=== PATIENT | female | born 1950 | race Caucasian/White ===

== ENCOUNTER 2016-11-15 06:01 | Inpatient (IN) | payer OTHER, MEDICARE ==
[2016-10-18 10:55] VITALS: BMI 24.0
--- NOTE | 2016-10-18 11:39 | PAT Medication Instructions ---
Service Date Oct 18, 2016. Current Home Medication List Aspirin (Aspirin Ec), 81 MG PO NOON Brimonidine Tartrate 0.15% Oph (Alphagan P 0.15% Oph *), 1 DROP OP BID Calcium Acetate (Phoslo 667 Mg), 4 TAB PO TID Cholecalciferol (Vitamin D3), 1 TAB PO QAM Hydralazine Hcl (Apresoline), 50 MG PO QPM Labetalol Hcl (Labetalol Hcl), 800 MG PO BID Levothyroxine Sodium (Levothyroxine Sodium), 1 TAB PO QAM Nutritional Supplements (Boost), 1 CAN PO DAILY Ondansetron Hcl (Zofran), 8 MG PO PRN PRN for Nausea Senna (Senokot), 1 TAB PO BID PRN for PRN Sulfamethoxazole-Trimethoprim (Smz-Tmp Ds), 1 TAB PO NOON Valsartan (Diovan), 320 MG PO HS Vitamin B Cmplx/Vitc/Folic Ac (Nephrocaps), 1 CAP PO QAM Medication Instructions For Your Scheduled Surgery - Hold the following medications evening prior to surgery: Valsartan (Diovan), 320 MG PO HS - Hold the following medications the morning of surgery: Vitamin B Cmplx/Vitc/Folic Ac (Nephrocaps), 1 CAP PO QAM Senna (Senokot), 1 TAB PO BID PRN for PRN Nutritional Supplements (Boost), 1 CAN PO DAILY Cholecalciferol (Vitamin D3), 1 TAB PO QAM Calcium Acetate (Phoslo 667 Mg), 4 TAB PO TID - Take the following medications the morning of surgery with a sip of water: Levothyroxine Sodium (Levothyroxine Sodium), 1 TAB PO QAM Labetalol Hcl (Labetalol Hcl), 800 MG PO BID Brimonidine Tartrate 0.15% Oph (Alphagan P 0.15% Oph *), 1 DROP OP BID Ondansetron Hcl (Zofran), 8 MG PO PRN PRN for Nausea (only if needed) - Take the following medications as scheduled the afternoon/night before surgery : Sulfamethoxazole-Trimethoprim (Smz-Tmp Ds), 1 TAB PO NOON Senna (Senokot), 1 TAB PO BID PRN for PRN Hydralazine Hcl (Apresoline), 50 MG PO QPM Labetalol Hcl (Labetalol Hcl), 800 MG PO BID Calcium Acetate (Phoslo 667 Mg), 4 TAB PO TID Aspirin (Aspirin Ec), 81 MG PO NOON Brimonidine Tartrate 0.15% Oph (Alphagan P 0.15% Oph *), 1 DROP OP BID If you have any questions please call us at [phone] or [phone] ( [place]) or [phone]
[2016-10-18 12:01] LABS: BASO % 1.1 %; BASO ABS # 0.06 K/uL (0-0.2); COMPLETE YES; HEMATOCRIT 33.6 % (37-47); IG% 0.2 %; LYMPH ABS # 1.07 K/uL (1.2-3.4); MEAN CELL VOLUME 96.3 fL (80-100); MEAN CORPUSCULAR HEMOGLOBIN 31.5 pg (25-34); MEAN CORPUSCULAR HGB CONC 32.7 g/dl (32-36); MEAN PLATELET VOLUME 8.8 fL (7.4-10.4); MONO % 10.5 %; NEUT % 61.2 %; PLATELET COUNT 245 K/uL (130-400); RED BLOOD COUNT 3.49 M/uL (4.2-5.4); WHITE BLOOD COUNT 5.64 K/uL (4.8-10.8)
[2016-10-18 12:14] LABS: INR 1.1 (0.9-1.1); PARTIAL THROMBOPLASTIN RATIO 1.2; PROTHROMBIN TIME (PATIENT) 11.9 SECONDS (9.0-12.0)
[2016-10-18 13:05] LABS: ESTIMATED AVERAGE GLUCOSE 85 mg/dl; HA1C FLAG Normal (Normal)
[2016-10-18 13:59] LABS: BUN/CREATININE RATIO 6.3 (10-20); CALCIUM 9.2 mg/dl (8.5-10.1); CREATININE 5.1 mg/dl (0.60-1.20); POTASSIUM 5.1 mmol/L (3.5-5.1)
--- NOTE | 2016-10-25 18:51 | History and Physical ---
History & Physical Date of Service Oct 25, 2016. History & Physical DATE OF ADMISSION: 11/15/16 PROCEDURE: Left knee replacement. HISTORY OF PRESENT ILLNESS: Rosanna is a 65-year-old female who presents for preop evaluation prior to left knee replacement. She has been having pain in his knee for many years now, which has gradually worsened, has now gotten to the point it is affecting her daily activities including walking, standing, going up and down steps. She has tried previous injections in her knee including cortisone as well as viscosupplementation. She has also had a previous knee arthroscopy. At this point in time, x-rays show end-stage DJD with valgus alignment, has failed conservative measures and would like to proceed with a left knee replacement. PAST MEDICAL HISTORY: 1. Hypertension. 2. Hypothyroidism. 3. End stage renal disease on hemodialysis, currently has dialysis on Monday, Monday and Monday ALLERGIES: 1. PENICILLIN. 2. STATINS. 3. PERCOCET. 4. ZESTRIL. 5. NORVASC. 6. CEPHALOSPORINS. CURRENT MEDICATIONS: 1. Labetalol 800 mg twice a day. 2. Terazosin 5 mg daily. 3. Levothyroxine 0.5 mg daily. 4. Valsartan 320 mg daily. 5. Senokot. 6. Tylenol as needed. PAST SURGICAL HISTORY: 1. Toe surgery in 1962. 2. Rectal abscess. 3. . 4. Tonsils 1972. 5. Appendectomy in 1972. 6. D\T\C. 7. Hysterectomy in 1977. 8. Right kidney removed in 1982. 9. Cholecystectomy 2005. 10. Left knee arthroscopy in 2005. 11. Right arm fistula removed 2007. 12. Right knee arthroscopy 2010. 13. Right TKA May 2016 FAMILY HISTORY: Noncontributory. SOCIAL HISTORY: Denies a history of smoking or tobacco use. No alcohol consumption. REVIEW OF SYSTEMS: Otherwise negative. Please see HPI for pertinent positives. PHYSICAL EXAMINATION: GENERAL: Pleasant 65-year-old female in no acute distress, alert and oriented x3. She is 5 feet 2 inches, weighs 136 pounds. VITAL SIGNS: Blood pressure is 136/82. CARDIAC: Regular rate and rhythm. No murmurs or gallops appreciated. LUNGS: Clear to auscultation without rales or wheeze bilaterally. ABDOMEN: Soft, nontender. Bowel sounds present. EXTREMITIES: Attention to her left lower extremity, she is neurovascularly intact. Calves are soft and nontender. DP pulse +2. Demonstrates good quad tone. Straight leg raise without lag. Overall has valgus alignment. She has positive crepitation with motion. Range of motion 0/5/110. Knee is ligamentously stable. IMAGING: Reviewed of her left knee shows complete loss of joint space of the lateral compartment as well as patellofemoral joint. She has subchondral cyst formation and peripheral osteophytes noted. IMPRESSION: 1. Left knee degenerative joint disease. 2. Hypertension. 3. Hypothyroidism. 4. end stage renal disease currently on dialysis PLAN: Further care discussed with patient. At this point in time, has failed conservative measures and would like to proceed with a left knee replacement. Will place on aspirin 81 mg p.o. b.i.d. for a month postop. Will require transfer post op to allow her to continue on her dialysis schedule , will discuss with SS to make similar arrangements to her previous hospital stay.
[~2016-11-15] VITALS: Ht 157.5 cm; Wt 66.0 kg
[2016-11-15] VITALS (10 sets, daily range): BP systolic 145–176; BP diastolic 67–83; PULSE 55–69; TEMP 36.4–36.8; O2SAT 91–100; Ht 157.5 cm; Wt 66.0 kg
[~2016-11-15 06:01] MED LIST: ACETAMINOPHEN 500 MG TAB PO SCH; ALPOPS1510 OP; ASPI81TA28 PO; B-COCAP2 PO; CALC667C4 PO; CHOL1000 PO; CeleBREX 200 MG CAP PO SCH; DEXAMETHASONE 4 MG TAB PO SCH; FAMOTIDINE 20 MG TAB PO SCH; GABAPENTIN 300 MG CAP PO SCH; HYDR-4717 PO; LABE200T24 PO; LACTATED RINGER'S 1000ML IV SCH; LEVO50TA6 PO; METOCLOPRAMIDE HCL 10 MG TAB PO SCH; NSS 1000ML IV SCH; NUTR-7 PO; ONDA8TAB6 PO; ROPIVACAINE 5MG/ML 30 ML 150 MG, BUPIVACAINE/EPINEPHR 0.5% MPF 30 ML, KETOROLAC TROMETH... INFIL SCH; SENN-61 PO; SODIUM CHLORIDE 0.9% IV SCH; SULF-183 PO; VALS320T PO; VANCOMYCIN INJ 900 MG in SODIUM CHLORIDE 0.9% 250ML 250 ML IV SCH; VANCOMYCIN IV SCH
[2016-11-15] MEDS ORDERED: LIDOCAINE HCL 2% 2 ML VIAL (20MG/ML) ONE (06:29)
[2016-11-15] MEDS ORDERED: BUPIVACAINE 0.5 % 5 MG/1 ML PF 10ML VIAL ONE (06:29)
[2016-11-15] MEDS ORDERED: PROPOFOL IV EMULSION 10 MG/ML 20 ML VIAL IV ONE (06:29)
[2016-11-15] MEDS ORDERED: FENTANYL CITRATE INJ 50 MCG/1 ML 2 ML VIAL ONE (06:30)
[2016-11-15] MEDS ORDERED: MIDAZOLAM HCL 1 MG/ML 2ML VIAL ONE (06:30)
[2016-11-15] MEDS: TRANEXAMIC ACID INJ 1,000 MG in SODIUM CHLORIDE 0.9% 100ML 100 ML IV SCH ×2 (06:30→08:06)
[2016-11-15] MEDS ORDERED: ONDANSETRON INJ 2 MG/ML 2 ML VIAL IV PRN ×2 (06:45→10:30)
[2016-11-15] MEDS ORDERED: ATROPINE SULFATE 0.1 MG/ML 5ML SYR IV PRN (06:45)
[2016-11-15] MEDS ORDERED: FENTANYL CITRATE INJ 50 MCG/1 ML 2 ML VIAL IV PRN (06:45)
[2016-11-15] MEDS ORDERED: EpHEDrine SULFATE INJ 50 MG/ML AMP IV PRN (06:45)
[2016-11-15] MEDS ORDERED: BACITRACIN 50000 UNIT VIAL ONE (06:57)
[2016-11-15] MEDS ORDERED: ORTHO JOINT ANESTHETIC ONE (06:57)
[2016-11-15] MEDS ORDERED: POVIDONE-IODINE OP SOLN 30 ML BTL ONE (06:57)
--- NOTE | 2016-11-15 07:00 | History & Physical Bridge Note ---
H&P Re-Evaluation Bridge Note: I have examined the patient, reviewed the History & Physical and in the interval since the performance of the History & Physical I have noted the following changes of clinical significance: No changes noted
[2016-11-15 07:33] LABS: BLOOD UREA NITROGEN 26 mg/dl (7-18); BUN/CREATININE RATIO 6.1 (10-20); CALCIUM 9.1 mg/dl (8.5-10.1); CARBON DIOXIDE 25 mmol/L (21-32); CHLORIDE 102 mmol/L (98-107); GLUCOSE 82 mg/dl (70-99); SODIUM 136 mmol/L (136-145)
--- NOTE | 2016-11-15 09:31 | [facility] Post Operative Brief Note ---
Immediate Operative Summary Operative Date November 15, 2016. Pre-Operative Diagnosis End-stage degenerative joint disease left knee Post-Operative Diagnosis Same as preoperative diagnosis Procedure(s) Performed Left Total Knee Arthroplasty Surgeon Dr. Tom Riggs Sports Photographer Surgeon(s) Terry Locke PA-C Estimated Blood Loss 5 mL Findings severe djd lt knee Specimens Permanent specimens A: Left knee bone and tissue Complication(s) None Disposition Recovery Room / PACU
[2016-11-15] MEDS ORDERED: MoRPHine SULFATE 2 MG/ML CARP IV PRN (10:30)
[2016-11-15] MEDS ORDERED: ALUMINUM/MAGNESIUM/SIMETH (MAALOX MAX) 30 ML UDC PO PRN (10:30)
[2016-11-15] MEDS ORDERED: TRAMADOL HCL 50 MG TAB PO PRN (10:30)
[2016-11-15] MEDS ORDERED: BISACODYL 10 MG SUPP PR PRN (10:30)
--- NOTE | 2016-11-15 10:35 | OPERATIVE REPORT ---
DATE OF OPERATION: 11/15/2016 PREOPERATIVE DIAGNOSIS: Severe end-stage tricompartmental degenerative joint disease with valgus alignment left knee. POSTOPERATIVE DIAGNOSIS: Same. PROCEDURE: Left total knee arthroplasty utilizing Moreno \T\ Nephew Journey II nonblock total knee arthroplasty, size 4 femur, 4 tibia, 11 poly constrained, 32 oval patella. SURGEON: Dr. Riggs. MONOGRAM AND LETTER PASTER: CRYSTAL Daly, who was necessary for prepping, draping, retraction, wound closure of deep fascia, subcu and skin, and was necessary for the case. ESTIMATED BLOOD LOSS: 5 mL TOURNIQUET TIME: 45 minutes. COMPLICATIONS: None. HISTORY: The patient presents as a 65-year-old white female who has previously undergone total knee arthroplasty of her right knee successfully, presents today for left total knee arthroplasty after failing attempts at conservative management including physical therapy, anti-inflammatories, injections, relative rest, activity modification, and presents for left total knee arthroplasty. She has a preoperative severe valgus alignment with degenerative joint disease, significant renal disease. OPERATION AND FINDINGS: PROCEDURE: The patient was properly prepped and draped in supine position for total knee arthroplasty after identifying the appropriate surgical site. An anterior midline incision was made through the subcutaneous tissues down to the region of the extensor mechanism. A medial parapatellar incision was subsequently made. Meticulous hemostasis was obtained and performed at all times. The patella having been subluxed lateralward, medial and lateral meniscal remnants were excised. The patellar cut was then initially made and was sized to the appropriate size. After subluxing the tibia forward the appropriate meniscal fragments having been removed the distal femur was then cut first utilizing a Moreno and Nephew nonblock. The distal femoral cuts and chamfer cuts were all made under direct visualization and the proximal tibial osteotomy cut was also made utilizing Moreno and Nephew nonblocks and checked with an extramedullary guide. The appropriate trial components on the femur and tibia were placed. Appropriate trial spacers were used to check flexion and extension gaps. With flexion and extension gaps being equal, the components were then subsequently after thorough irrigation and debridement lavage components were then subsequently cemented in the following order: femur, tibia and patella. Exparel was used for intraoperative anesthesia, the medial parapatellar incision was closed utilizing #1 Vicryl, subQ was closed with 2-0 Vicryl, skin was closed with skin clips. A sterile compression dressing was placed. The patient was taken to recovery room in stable condition. Due to the complex nature of the procedure, the entire surgery was performed with the operational assistance of CRYSTAL Daly. The medical assistant dermatology, under direct supervision, was involved in the actual performance of all aspects of the surgical procedure including hemostasis, tissue retraction and incision, instrument management, patient positioning, and wound closure. I attest to the content of the Intraoperative Record and any orders documented therein. Any exceptio ns are noted below.
--- NOTE | 2016-11-15 10:58 | Anesthesiology Progress Note ---
Anesthesia Post Op Note Date & Time November 15, 2016 at 10:58 Vital Signs Pain Intensity: 0 Vital Signs Past 12 Hours Date Time Temp Pulse Resp B/P Pulse Ox O2 Delivery O2 Flow Rate FiO2 11/15/16 10:50 36.6 52 18 140/67 98 Nasal Cannula 2 11/15/16 10:45 52 18 149/65 98 Nasal Cannula 2 11/15/16 10:35 53 18 129/60 98 Nasal Cannula 2 11/15/16 10:25 55 18 131/73 100 Mask 10 11/15/16 10:15 36.9 62 18 130/68 98 Mask 10 11/15/16 07:07 36.5 56 20 145/76 97 Room Air Notes Mental Status: alert / awake / arousable, participated in evaluation Pt Amnestic to Procedure: Yes Nausea / Vomiting: adequately controlled Pain: adequately controlled Airway Patency, RR, SpO2: stable & adequate BP & HR: stable & adequate Hydration State: stable & adequate Neuraxial Anesthesia: was administered, sensory block is resolving Anesthetic Complications: no major complications apparent
--- NOTE | 2016-11-15 11:12 | DIAGNOSTIC IMAGING REPORT ---
LEFT KNEE 2 VIEWS History: Left total knee arthroplasty. Degenerative arthritis. Postop. FINDINGS: The patient is status post a left total knee arthroplasty. The hardware is intact. No fracture or dislocation. Surgical drains are in place. IMPRESSION: Left total knee arthroplasty. No evidence for hardware complication. Electronically signed by: Jose G West M.D. 11/15/2016 11:10 AM Dictated Date/Time: 11/15/2016 10:51 AM
--- NOTE | 2016-11-15 11:45 | Medical Consult ---
Consultation Date of Consultation: November 15, 2016. Attending Physician: Tom Riggs D.O. Reason for Consultation: Medical management History of Present Illness Patient is a 65 y/o female, with PMHx of HTN, hypothyroidism, and ESRD on dialysis M,W,F, s/p left TKA by Dr. Riggs on 11/15. Pain is currently well controlled. No BMs/flatus postop. Patient denies any fever, chills, sweats, lightheadedness, dizziness, vision changes, CP, palpitations, edema, SOB, wheezing, cough, abdominal pain, nausea, vomiting, diarrhea, urinary symptoms, melena, numbness/tingling, weakness, muscle/joint pain, anxiety/depression, active bleeding, or new skin discoloration/changes. Past Medical/Surgical History PAST MEDICAL HISTORY: 1. HTN 2. Hypothyroidism 3. End stage renal disease on hemodialysis, currently has dialysis on Monday, Monday and Monday PAST SURGICAL HISTORY: 1. Toe surgery in 1962. 2. Rectal abscess. 3. . 4. Tonsils 1972. 5. Appendectomy in 1972. 6. D\T\C. 7. Hysterectomy in 1977. 8. Right kidney removed in 1982. 9. Cholecystectomy 2005. 10. Left knee arthroscopy in 2005. 11. Right arm fistula removed 2007. 12. Right knee arthroscopy 2010. 13. Right TKA May 2016 Family History Diabetes mellitus SISTER FH: Parkinson's disease FATHER FH: hyperlipidemia MOTHER Kidney disease (Grandmother's brother) Social History Smoking Status: Former Smoker Drug Use: none Marital Status: Housing Status: lives alone Occupation Status: retired Allergies Coded Allergies: Cephalosporins (Verified Allergy, Unknown, UNKNOWN, 11/15/16) Lisinopril (Verified Allergy, Unknown, FACE SWELLING, 11/15/16) Penicillins (Verified Allergy, Unknown, ANAPHYLAXIS, 11/15/16) Oxycodone (Verified Adverse Reaction, Intermediate, N/V, 11/15/16) Statins (Verified Adverse Reaction, Intermediate, PAIN-MUSCLE ACHES, ) Allopurinol (Verified Adverse Reaction, Unknown, gout, 11/15/16) Amlodipine (Verified Adverse Reaction, Unknown, A FIB, LEGS SWELLING, ) Niacin (Verified Adverse Reaction, Unknown, flushing, 11/15/16) Home Medications Reported Home Medications Medications Dose Route/Sig Max Daily Dose Days Date Category Dose Instructions Zofran (Ondansetron HCl) 8 Mg Tab 8 Mg PO PRN PRN 10/18/16 Reported Aspirin Ec (Aspirin) 81 Mg Tab 81 Mg PO NOON 10/18/16 Reported Diovan (Valsartan) 320 Mg Tab 320 Mg PO HS 05/12/16 Reported Boost (Nutritional Supplements) 1 Liq Liq 1 Can PO DAILY 05/12/16 Reported Vitamin D3 (Cholecalciferol) 1,000 Unit Tab 1 Tab PO QAM 90 05/12/16 Reported Phoslo 667 Mg (Calcium Acetate) 667 Mg Cap 4 Tab PO TID 05/12/16 Reported Smz-Tmp Ds (Sulfamethoxazole-Trimethoprim) 1 Tab Tab 1 Tab PO NOON 10 05/12/16 Reported 400 MG Nephrocaps (Vitamin B Complex/Vit C/Folic Acid) 1 Cap Cap 1 Cap PO QAM 05/12/16 Reported Apresoline (Hydralazine Hcl) 50 Mg Tab 50 Mg PO QPM 05/12/16 Reported Levothyroxine Sodium 50 Mcg Tab 1 Tab PO QAM 90 05/12/16 Reported Labetalol Hcl 200 Mg Tab 800 Mg PO BID 05/12/16 Reported Senokot (Senna) 8.6 Mg Tab 1 Tab PO BID PRN 12/08/10 Reported Alphagan P 0.15% Oph * (Brimonidine Tartrate) Soln 1 Drop OP BID 12/08/10 Reported Current Inpatient Medications Current Inpatient Medications Medications (Trade) Dose Ordered Sig/Tien Route Start Time Stop Time Status Last Admin Dose Admin Lactated Ringer's 1,000 ml @ 60 mls/hr [id number] IV 11/15/16 06:00 11/15/16 22:39 11/15/16 06:46 60 MLS/HR Sodium Chloride (Nss 1000ml) 1,000 ml @ 15 mls/hr Q24H IV 11/15/16 06:00 11/16/16 05:59 Acetaminophen (Tylenol Tab) 1,000 mg PREOP PO 11/15/16 06:00 11/15/16 18:00 11/15/16 07:26 1,000 MG Dexamethasone (Decadron Tab) 8 mg PREOP PO 11/15/16 06:00 11/15/16 18:00 11/15/16 07:26 8 MG Famotidine (Pepcid Tab) 20 mg PREOP PO 11/15/16 06:00 11/15/16 18:00 11/15/16 07:26 20 MG Gabapentin (Neurontin Cap) 300 mg PREOP PO 11/15/16 06:00 11/15/16 18:00 11/15/16 07:27 300 MG Metoclopramide HCl 10 mg 10 mg PREOP PO 11/15/16 06:00 11/15/16 18:00 11/15/16 07:26 10 MG Tranexamic Acid/ Sodium Chloride (Cyklokapron Inj/ Nss 100ml) 110 ml @ 660 mls/hr TODAY@06,0630 IV 11/15/16 06:00 11/15/16 18:00 11/15/16 08:06 660 MLS/HR Fentanyl Citrate (Fentanyl Inj) 50 mcg Q5M PRN IV 11/15/16 06:45 11/15/16 11:45 Ondansetron HCl (Zofran Inj) 4 mg ONE PRN IV 11/15/16 06:45 11/15/16 11:45 Ephedrine Sulfate (EpHEDrine SULFATE INJ) 5 mg Q5M PRN IV 11/15/16 06:45 11/15/16 11:45 Atropine Sulfate 0.5 mg 0.5 mg Q1M PRN IV 11/15/16 06:45 11/15/16 11:45 Vancomycin HCl/ Sodium Chloride (Vancomycin Inj/ Nss 250ml) 268 ml @ 125 mls/hr PREOP IV 11/15/16 06:00 11/15/16 18:00 Calcium Acetate (Phoslo Cap) 2,668 mg TID PO 11/15/16 14:00 12/15/16 13:59 UNV Cholecalciferol (Vitamin D Tab) 1,000 inter.unit QAM PO 11/16/16 09:00 12/16/16 08:59 UNV Hydralazine HCl (Apresoline Tab) 50 mg QPM PO 11/15/16 21:00 12/15/16 20:59 UNV Labetalol HCl (Normodyne Tab) 800 mg BID PO 11/15/16 21:00 12/15/16 20:59 UNV Levothyroxine Sodium (Synthroid Tab) 50 mcg QAM PO 11/16/16 09:00 12/16/16 08:59 UNV Enteral Nutritional Formula (Boost) 1 can DAILY PO 11/16/16 09:00 12/16/16 08:59 UNV Valsartan (Diovan Tab) 320 mg HS PO 11/15/16 21:00 12/15/16 20:59 UNV Vitamin B Complex/ Vit C/Folic Acid (Nephrocaps) 1 cap QAM PO 11/16/16 09:00 12/16/16 08:59 UNV Non-Formulary Medication (Brimonidine Tartrate 0.15% Oph (Alphagan P 0.15% Oph *)) 1 drop BID OP 11/15/16 21:00 12/15/16 20:59 UNV Morphine Sulfate 2 mg 2 mg Q4HWA PRN IV 11/15/16 10:30 11/29/16 10:29 UNV Potassium Chloride/Dextrose/ Sod Cl 1,000 ml @ 100 mls/hr Q10H IV 11/15/16 10:17 11/16/16 10:16 UNV Vancomycin HCl/ Sodium Chloride (Vancomycin Inj/ Nss 250ml) 268 ml @ 125 mls/hr Q12H IV 11/15/16 10:30 11/15/16 12:39 UNV Acetaminophen/ Hydrocodone Bitart (Ulysses 5/325 Tab) 1 TABLET FOR PAIN RATING... Q4H PRN PO 11/15/16 10:30 11/29/16 10:29 UNV Acetaminophen (Tylenol Tab) 1,000 mg Q8H PO 11/15/16 10:30 12/15/16 10:29 UNV Magnesium Hydroxide (Milk Of Magnesia Susp) 30 ml Q6H PRN PO 11/15/16 10:30 12/15/16 10:29 UNV Bisacodyl (Dulcolax Supp) 10 mg DAILY PRN AL 11/15/16 10:30 12/15/16 10:29 UNV Senna (Senokot Tab) 17.2 mg HS PO 11/15/16 21:00 12/15/16 20:59 UNV Docusate Sodium (coLACE CAP) 100 mg BID PO 11/15/16 21:00 12/15/16 20:59 UNV Al Hydrox/Mg Hydrox/Simethicone (Maalox Max Susp) 15 ml Q4H PRN PO 11/15/16 10:30 12/15/16 10:29 UNV Multivitamins (Multivitamin Tab) 1 tab QAM PO 11/16/16 09:00 12/16/16 08:59 UNV Ondansetron HCl (Zofran Inj) 4 mg Q6H PRN IV 11/15/16 10:30 12/15/16 10:29 UNV Ferrous Gluconate (Ferrous Gluconate Tab) 324 mg TIDM PO 11/15/16 12:00 12/15/16 11:59 UNV Pantoprazole Sodium (Protonix Tab) 40 mg QAM PO 11/16/16 09:00 12/16/16 08:59 UNV Tramadol HCl (Ultram Tab) 1 tablet for pain rating... Q4H PRN PO 11/15/16 10:30 12/15/16 10:29 UNV Aspirin (Ecotrin Tab) 81 mg BID PO 11/15/16 21:00 12/15/16 20:59 UNV Physical Exam Date Time Temp Pulse Resp B/P Pulse Ox O2 Delivery O2 Flow Rate FiO2 11/15/16 10:50 36.6 52 18 140/67 98 Nasal Cannula 2 11/15/16 10:45 52 18 149/65 98 Nasal Cannula 2 11/15/16 10:35 53 18 129/60 98 Nasal Cannula 2 11/15/16 10:25 55 18 131/73 100 Mask 10 11/15/16 10:15 36.9 62 18 130/68 98 Mask 10 11/15/16 07:07 36.5 56 20 145/76 97 Room Air General Appearance: no apparent distress Head: normocephalic, atraumatic Eyes: normal inspection, PERRL ENT: hearing grossly normal Neck: supple Respiratory/Chest: lungs clear, no respiratory distress, no accessory muscle use Cardiovascular: regular rate, rhythm, + systolic murmur Abdomen/GI: normal bowel sounds, non tender, soft Extremities/Musculoskelatal: no calf tenderness, no pedal edema Neurologic/Psych: alert, normal mood/affect, normal reflexes Skin: warm/dry, no rash Laboratory Results Last 24 Hours Test 11/15/16 06:54 11/15/16 07:40 Sodium Level 136 mmol/L Potassium Level mmol/L 4.1 mmol/L Chloride Level 102 mmol/L Carbon Dioxide Level 25 mmol/L Anion Gap 9.0 mmol/L Blood Urea Nitrogen 26 mg/dl Creatinine 4.30 mg/dl Est Creatinine Clear Calc Drug Dose 10.9 ml/min Estimated GFR () 11.6 Estimated GFR (Non- 10.0 BUN/Creatinine Ratio 6.1 Random Glucose 82 mg/dl Calcium Level 9.1 mg/dl Assessment & Plan Patient is a 65 y/o female, with PMHx of HTN, hypothyroidism, and ESRD on dialysis M,W,F, s/p left TKA by Dr. Riggs on 11/15. - Surgical management, pain management, PT/OT, and DVT prophylaxis as per primary team - Follow PRP and CBC postop HTN: Hydralazine 50 mg daily, Labetalol 800 mg BID, Diovan 320 mg HS Hypothyroidism: Synthroid 50 mcg daily ESRD, on dialysis M,W,F: - Supply Technician, Dr. Menon - Nephrology consulted GI Prophylaxis: Protonix daily, Maalox PRN, IV Zofran PRN, Colace and/or Milk of Mag PRN DVT prophylaxis: As per primary team Code Status: LEVEL I, FULL Dispo: Discharge as per primary team Thank you for this consultation. We will continue to follow throughout hospital stay.
[2016-11-15] MEDS ORDERED: D5W AND 1/2NSS + 20MEQ KCL 1,000 ML IV SCH (12:00)
[2016-11-15] MEDS: FERROUS GLUCONATE 324 MG TAB PO SCH ×2 (12:43→17:48)
[2016-11-15] MEDS ORDERED: NURSING VERBAL MED ORDER ONE (13:00)
[2016-11-15] MEDS: ACETAMINOPHEN 500 MG TAB PO SCH ×2 (14:15→21:55)
[2016-11-15] MEDS: CALCIUM ACETATE 667MG GELCAP PO SCH ×2 (14:15→20:34)
--- NOTE | 2016-11-15 16:12 | Nephrology Consultation ---
Nephrology Consultation Date & Providers Date of Consultation: November 15, 2016. Primary Care Provider: Ruth Tomlinson M.D. Referring Provider: Reason for Consultation Provide inpatient HD for this patient with ESRD admitted for elective L TKA History of Present Illness Ms. Harmon is a 65 year old white female who is seen at the request of Dr. Riggs to provide inpatient HD and assist with medical management. Medical records in the hospital EMR were reviewed and are summarized as follows: Ms. Harmon developed R hydronephrosis from unknown cause and required R nephrectomy 1982. She progressed to ESRD and underwent [facility] 2011 at [facility] in [place]. She reports that she received a pediatric kidney. She had no acute rejection episodes. 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 She underwent L nephrectomy and was taken off Mycophenolate therapy. Her CSA and Prednisone were also reduced due to concerns of potentiating her malignancy. 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 Ms. Harmon had a R upper arm AVF placed. 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 Attempts at a L upper arm AVF were unsuccessful. The patient had a L upper arm AVG placed. Unfortunately this has infiltrated several times and the patient is still dependent on a R IJ THC for her dialysis therapy. Ms. Harmon reports a h/o HTN, hypothyroidism and cirrhosis. She reports that she periodically requires paracentesis due to ascites. Medical records from [facility] indicate that she has severe pulmonary hypertension. She is undergoing medical evaluation and consideration for a right heart catheterization. Ms. 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 She required R TKA 05/25. She was admitted this morning for elective L TKA. Ms. Harmon reports that she tolerated the operation well. She is due for HD tomorrow. She dialyzes MWF at [facility] HD unit (Dr. Blanco). Her chronic dialysis prescription is 3.5hr 2K 2Ca F-180 Qb350 Qd800 EDW 59kg Na 138 HCO3 35 Venofer 50mg weekly Micera 50mcg q 2 weeks. Past Medical/Surgical History Medical: # ESRD on MWF HD # HTN # Hypothyroidism Surgical: # Bilateral kl[place] nephrectomy # Cholecystectomy # Failed bilateral upper arm AVF # L upper arm AVG # R IJ THC Allergies Coded Allergies: Cephalosporins (Verified Allergy, Unknown, UNKNOWN, 11/15/16) Lisinopril (Verified Allergy, Unknown, FACE SWELLING, 11/15/16) Penicillins (Verified Allergy, Unknown, ANAPHYLAXIS, 11/15/16) Oxycodone (Verified Adverse Reaction, Intermediate, N/V, 11/15/16) Statins (Verified Adverse Reaction, Intermediate, PAIN-MUSCLE ACHES, ) Allopurinol (Verified Adverse Reaction, Unknown, gout, 11/15/16) Amlodipine (Verified Adverse Reaction, Unknown, A FIB, LEGS SWELLING, ) Niacin (Verified Adverse Reaction, Unknown, flushing, 11/15/16) Inpatient Medications Current Inpatient Medications Medications (Trade) Dose Ordered Sig/Tien Route Start Time Stop Time Status Last Admin Dose Admin Sodium Chloride (Nss 1000ml) 1,000 ml @ 15 mls/hr Q24H IV 11/15/16 06:00 11/16/16 05:59 Acetaminophen (Tylenol Tab) 1,000 mg PREOP PO 11/15/16 06:00 11/15/16 18:00 11/15/16 07:26 1,000 MG Dexamethasone (Decadron Tab) 8 mg PREOP PO 11/15/16 06:00 11/15/16 18:00 11/15/16 07:26 8 MG Famotidine (Pepcid Tab) 20 mg PREOP PO 11/15/16 06:00 11/15/16 18:00 11/15/16 07:26 20 MG Gabapentin (Neurontin Cap) 300 mg PREOP PO 11/15/16 06:00 11/15/16 18:00 11/15/16 07:27 300 MG Metoclopramide HCl 10 mg 10 mg PREOP PO 11/15/16 06:00 11/15/16 18:00 11/15/16 07:26 10 MG Tranexamic Acid 1000 mg/Sodium Chloride 110 ml @ 660 mls/hr TODAY@06,0630 IV 11/15/16 06:00 11/15/16 18:00 11/15/16 08:06 660 MLS/HR Vancomycin HCl/ Sodium Chloride (Vancomycin Inj/ Nss 250ml) 268 ml @ 125 mls/hr PREOP IV 11/15/16 06:00 11/15/16 18:00 Calcium Acetate (Phoslo Cap) 2,668 mg TID PO 11/15/16 14:00 12/15/16 13:59 11/15/16 14:15 2,668 MG Cholecalciferol (Vitamin D Tab) 1,000 inter.unit QAM PO 11/16/16 09:00 12/16/16 08:59 Hydralazine HCl (Apresoline Tab) 50 mg QPM PO 11/15/16 21:00 12/15/16 20:59 Labetalol HCl (Normodyne Tab) 800 mg BID PO 11/15/16 21:00 12/15/16 20:59 Levothyroxine Sodium (Synthroid Tab) 50 mcg DAILYBB PO 11/16/16 06:00 12/16/16 05:59 Enteral Nutritional Formula (Boost) 1 can DAILY PO 11/16/16 09:00 12/16/16 08:59 Valsartan (Diovan Tab) 320 mg HS PO 11/15/16 21:00 12/15/16 20:59 Vitamin B Complex/ Vit C/Folic Acid (Nephrocaps) 1 cap QAM PO 11/16/16 09:00 12/16/16 08:59 Brimonidine Tartrate (Alphagan-P 0.15% Oph Soln) 1 drops BID OP 11/15/16 21:00 12/15/16 20:59 Morphine Sulfate 2 mg 2 mg Q4HWA PRN IV 11/15/16 10:30 11/29/16 10:29 Vancomycin HCl/ Sodium Chloride (Vancomycin Inj/ Nss 250ml) 268 ml @ 125 mls/hr TODAY@2000 IV 11/15/16 20:00 11/15/16 22:09 Acetaminophen/ Hydrocodone Bitart ([place] 5/325 Tab) 1 TABLET FOR PAIN RATING... Q4H PRN PO 11/15/16 10:30 11/29/16 10:29 Acetaminophen (Tylenol Tab) 1,000 mg Q8H PO 11/15/16 14:00 12/15/16 13:59 11/15/16 14:15 1,000 MG Magnesium Hydroxide (Milk Of Magnesia Susp) 30 ml Q6H PRN PO 11/15/16 10:30 12/15/16 10:29 Bisacodyl (Dulcolax Supp) 10 mg DAILY PRN [place] 11/15/16 10:30 6/8/17 10:29 Senna (Senokot Tab) 17.2 mg HS PO 11/15/16 21:00 12/15/16 20:59 Docusate Sodium (coLACE CAP) 100 mg BID PO 11/15/16 21:00 12/15/16 20:59 Al Hydrox/Mg Hydrox/Simethicone (Maalox Max Susp) 15 ml Q4H PRN PO 11/15/16 10:30 12/15/16 10:29 Multivitamins (Multivitamin Tab) 1 tab QAM PO 11/16/16 09:00 12/16/16 08:59 Ondansetron HCl (Zofran Inj) 4 mg Q6H PRN IV 11/15/16 10:30 12/15/16 10:29 Ferrous Gluconate (Ferrous Gluconate Tab) 324 mg TIDM PO 11/15/16 12:30 12/15/16 12:29 11/15/16 12:43 324 MG Pantoprazole Sodium (Protonix Tab) 40 mg QAM PO 11/16/16 09:00 12/16/16 08:59 Tramadol HCl (Ultram Tab) 1 tablet for pain rating... Q4H PRN PO 11/15/16 10:30 12/15/16 10:29 Aspirin (Ecotrin Tab) 81 mg BID PO 11/15/16 21:00 12/15/16 20:59 Family History Diabetes mellitus SISTER FH: Parkinson's disease FATHER FH: hyperlipidemia MOTHER Kidney disease (Grandmother's brother) Negative for CKD / ESRD Social History Smoking Status: Former Smoker Drug Use: none Marital Status: 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 Pertinent positives are noted above. All other systems are negative. Physical Exam Date Time Temp Pulse Resp B/P Pulse Ox O2 Delivery O2 Flow Rate FiO2 11/15/16 13:58 36.6 57 18 158/70 92 Room Air 11/15/16 12:57 36.6 61 16 159/74 91 Room Air 11/15/16 11:59 36.7 60 17 145/75 94 Nasal Cannula 2.0 11/15/16 11:30 36.4 61 16 160/73 100 Nasal Cannula 2.0 11/15/16 11:00 36.8 55 16 176/67 97 Nasal Cannula 2.0 11/15/16 11:00 97 Nasal Cannula 2.0 11/15/16 11:00 Nasal Cannula 2.0 11/15/16 10:50 36.6 52 18 140/67 98 Nasal Cannula 2 11/15/16 10:45 52 18 149/65 98 Nasal Cannula 2 11/15/16 10:35 53 18 129/60 98 Nasal Cannula 2 11/15/16 10:25 55 18 131/73 100 Mask 10 11/15/16 10:15 36.9 62 18 130/68 98 Mask 10 11/15/16 07:07 36.5 56 20 145/76 97 Room Air General Appearance: no apparent distress Head: normocephalic, atraumatic Eyes: PERRL, EOMI Neck: no adenopathy, + JVD, + pertinent finding (R IJ THC with clean dry dressing in place) Respiratory/Chest: lungs clear Cardiovascular: regular rate, rhythm, + systolic murmur (Grade II/V systolic murmur RUSB) Abdomen/GI: normal bowel sounds, + distended, + pertinent finding (reducible periumbilical hernia) Extremities/Musculoskelatal: no calf tenderness, no pedal edema, + pertinent finding (L knee w/ clean dry dressing in place) Neurologic/Psych: alert, oriented x 3 Skin: no rash Laboratory Results Last 24 Hours Test 11/15/16 06:54 11/15/16 07:40 Sodium Level 136 mmol/L Potassium Level mmol/L 4.1 mmol/L Chloride Level 102 mmol/L Carbon Dioxide Level 25 mmol/L Anion Gap 9.0 mmol/L Blood Urea Nitrogen 26 mg/dl Creatinine 4.30 mg/dl Est Creatinine Clear Calc Drug Dose 10.9 ml/min Estimated GFR () 11.6 Estimated GFR (Non- 10.0 BUN/Creatinine Ratio 6.1 Random Glucose 82 mg/dl Calcium Level 9.1 mg/dl Impression (1) End-stage renal disease on hemodialysis (2) S/P TKR (total knee replacement) (3) Pulmonary arterial hypertension (4) Hypertension (5) Hypothyroidism (6) Anemia (7) Cirrhosis (8) Ascites (9) Periumbilical hernia Patient admitted for elective L TKA. 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 Attempts to place AVF have been unsuccessful. Patient has a left upper arm AVG which is functional but frequently infiltrates and she still uses an IJ THC as her main vascular access. PMH - ESRD, HTN, hypothyroidism, cirrhosis, pulmonary HTN w/ cor pulmonale requiring periodic paracentesis, periumbilical hernia Recommendations END STAGE RENAL DISEASE: -- Heplock IV -- Protect L upper arm AVG -- Volume status and electrolyte balance are acceptable at this time. No acute indication for HD today. Will schedule heparin free HD for am -- HD diet -- Daily Nephrovite HYPERTENSION: -- Blood pressure is acceptable at this time. Continue current antihypertensive regimen. No change at present ANEMIA: -- Hgb is within target range 10 - 11. No acute indication for BALWINDER at this time -- Patient receives Mircera 50 mcg IV every 2 weeks as outpatient -- Recommend stopping oral iron due to risk of constipation. Can provide IV iron w/ HD if needed
[2016-11-15] MEDS ORDERED: VANCOMYCIN INJ 900 MG in SODIUM CHLORIDE 0.9% 250ML 250 ML IV SCH (20:00)
[2016-11-15] MEDS: LABETALOL HCL 200 MG TAB PO SCH (20:37)
[2016-11-15] MEDS: HYDROCODONE/ACETAMOPHEN 5/325MG TAB PO PRN (20:38)
[2016-11-15] MEDS: VALSARTAN 80 MG TAB PO SCH (20:38)
[2016-11-15] MEDS: DOCUSATE SODIUM 100 MG CAP PO SCH (20:38)
[2016-11-15] MEDS: ASPIRIN 81 MG ECTAB PO SCH (20:38)
[2016-11-15] MEDS: BRIMONIDINE TARTRATE-P 0.15% 5 ML BTL OP SCH (20:39)
[2016-11-15] MEDS: SENNA 8.6 MG TAB PO SCH (20:39)
[2016-11-16] VITALS (27 sets, daily range): BP systolic 105–161; BP diastolic 53–87; PULSE 42–69; TEMP 36.4–36.7; O2SAT 91–100
[2016-11-16] MEDS: LEVOTHYROXINE 50 MCG TAB PO SCH (05:48)
[2016-11-16] MEDS: ACETAMINOPHEN 500 MG TAB PO SCH ×3 (06:00→21:38)
[2016-11-16 07:01] LABS: HEMATOCRIT 33.2 % (37-47); MEAN CELL VOLUME 98.2 fL (80-100); MEAN CORPUSCULAR HEMOGLOBIN 29.9 pg (25-34); MEAN CORPUSCULAR HGB CONC 30.4 g/dl (32-36); PLATELET COUNT 202 K/uL (130-400); RED BLOOD COUNT 3.38 M/uL (4.2-5.4); WHITE BLOOD COUNT 8.65 K/uL (4.8-10.8)
--- NOTE | 2016-11-16 07:25 | Orthopedic Progress Note ---
Orthopedic Progress Note Date of Service November 16, 2016. Subjective Post OP Day: 1 Reports: feeling well, pain controlled w PO medications, Denies: SOB, calf pain , chest pain, complaints, light headedness, nausea / vomiting Objective calves soft nontender, N/V intact, capillary refill less than 2 sec., dressing C /D/I, A&O x3, toes mobile, hemovac drainage (50cc/8 hours) Date Time Temp Pulse Resp B/P Pulse Ox O2 Delivery O2 Flow Rate FiO2 11/16/16 07:19 36.4 53 16 157/82 94 Room Air 11/16/16 03:00 36.5 52 14 137/67 94 Room Air 11/16/16 00:36 Room Air 11/15/16 23:44 36.7 65 15 154/73 91 Room Air 11/15/16 20:30 69 176/77 11/15/16 20:03 36.7 69 17 169/83 95 Room Air 11/15/16 15:35 36.7 61 17 168/68 97 Nasal Cannula 3.0 11/15/16 13:58 36.6 57 18 158/70 92 Room Air 11/15/16 12:57 36.6 61 16 159/74 91 Room Air 11/15/16 11:59 36.7 60 17 145/75 94 Nasal Cannula 2.0 11/15/16 11:30 36.4 61 16 160/73 100 Nasal Cannula 2.0 11/15/16 11:00 36.8 55 16 176/67 97 Nasal Cannula 2.0 11/15/16 11:00 97 Nasal Cannula 2.0 11/15/16 11:00 Nasal Cannula 2.0 11/15/16 10:50 36.6 52 18 140/67 98 Nasal Cannula 2 11/15/16 10:45 52 18 149/65 98 Nasal Cannula 2 11/15/16 10:35 53 18 129/60 98 Nasal Cannula 2 11/15/16 10:25 55 18 131/73 100 Mask 10 11/15/16 10:15 36.9 62 18 130/68 98 Mask 10 Laboratory Results 24 Hours: Test 11/16/16 06:40 Hematocrit 33.2 % Hemoglobin 10.1 g/dL Assessment & Plan Assessment: POD #1 s/p Left TKA -pt/ot -dvt proph with syed/scd/asa -will discuss with RASHAD wilson HS rehab stay HTN: Hydralazine 50 mg daily, Labetalol 800 mg BID, Diovan 320 mg HS Hypothyroidism has resumed her Synthroid ESRD, on dialysis M,W,F: nephology has been consulted, scheduled for dialysis this am Discharge Planning Discharge Planning: uncertain
--- NOTE | 2016-11-16 08:21 | Anesthesiology Progress Note ---
Anesthesia Post Op Note Date & Time November 16, 2016 at 08:22 Vital Signs Pain Intensity: 0.0 Vital Signs Past 12 Hours Date Time Temp Pulse Resp B/P Pulse Ox O2 Delivery O2 Flow Rate FiO2 11/16/16 07:19 36.4 53 16 157/82 94 Room Air 11/16/16 07:15 Room Air 11/16/16 03:00 36.5 52 14 137/67 94 Room Air 11/16/16 00:36 Room Air 11/15/16 23:44 36.7 65 15 154/73 91 Room Air 11/15/16 20:30 69 176/77 Notes Mental Status: alert / awake / arousable, participated in evaluation Pt Amnestic to Procedure: Yes Nausea / Vomiting: adequately controlled Pain: adequately controlled Airway Patency, RR, SpO2: stable & adequate BP & HR: stable & adequate Hydration State: stable & adequate Neuraxial Anesthesia: sensory block resolved Anesthetic Complications: no major complications apparent
[2016-11-16 08:34] LABS: CALCIUM 9.1 mg/dl (8.5-10.1); CREATININE 5.7 mg/dl (0.60-1.20); MAGNESIUM 2.5 mg/dl (1.8-2.4); POTASSIUM 4.6 mmol/L (3.5-5.1)
[2016-11-16] MEDS: BOOST VANILLA PO SCH ×2 (08:41)
[2016-11-16] MEDS: FERROUS GLUCONATE 324 MG TAB PO SCH ×3 (08:41→17:33)
[2016-11-16] MEDS: BRIMONIDINE TARTRATE-P 0.15% 5 ML BTL OP SCH ×2 (08:42→21:39)
[2016-11-16] MEDS: DOCUSATE SODIUM 100 MG CAP PO SCH ×2 (08:43→21:40)
[2016-11-16] MEDS: ASPIRIN 81 MG ECTAB PO SCH ×2 (08:43→21:40)
[2016-11-16] MEDS: MULTIVITAMIN TAB PO SCH (08:43)
[2016-11-16] MEDS: NEPHROCAPS PO SCH (08:44)
[2016-11-16] MEDS: CALCIUM ACETATE 667MG GELCAP PO SCH ×3 (08:45→21:00)
[2016-11-16] MEDS: CHOLECALCIFEROL 1000 INTER.UNIT TAB PO SCH (08:46)
[2016-11-16] MEDS: PANTOprazole SOD 40 MG TAB PO SCH (08:47)
[2016-11-16] MEDS: LABETALOL HCL 200 MG TAB PO SCH ×2 (08:58→21:00)
--- NOTE | 2016-11-16 09:17 | Nephrology Progress Note ---
Nephrology Progress Note Date of Service November 16, 2016. Chief Complaint Provide inpatient HD for this patient with ESRD admitted for elective L TKA Subjective Ms. Harmon was seen & examined in her hospital room this morning. She was alert & oriented x3. She was tolerating her diet without complication. Ms. Harmon reported that she up yesterday and able to ambulate in the hallway a short distance with assistance. She currently denied fever, angina, dyspnea or abdominal discomfort. She complains of left knee discomfort but notes that overall it is improved. Review of Systems Constitutional: No fever Cardiovascular: No chest pain Respiratory: No dyspnea at rest Abdomen: No nausea, No pain, No vomiting Genitourinary - Female: No dysuria Extremities: No leg edema A complete review of systems was performed. Pertinent positives are noted above. All other systems are negative. Vital Signs Last 8 Hrs Date Time Temp Pulse Resp B/P Pulse Ox O2 Delivery O2 Flow Rate FiO2 11/16/16 08:45 57 147/75 11/16/16 07:19 36.4 53 16 157/82 94 Room Air 11/16/16 07:15 Room Air 11/16/16 03:00 36.5 52 14 137/67 94 Room Air I & O 24-Hour Column 11/16/16 08:00 Intake Total 1410 ml Output Total 235 ml Balance 1175 ml Last Recorded Weight Weight (Kilograms): 60.200 Physical Exam General Appearance: + thin (frail appearing) Head: normocephalic, atraumatic (temporal muscle wasting) Eyes: PERRL, EOMI ENT: pharynx normal Neck: supple, + pertinent finding (R IJ THC with clean dressing in place) Respiratory/Chest: lungs clear Cardiovascular: regular rate, rhythm Abdomen/GI: normal bowel sounds, non tender, soft Extremities/Musculoskelatal: no calf tenderness, no pedal edema, + pertinent finding (L upper arm AVG + bruit) Neurologic/Psych: alert, oriented x 3 Family History Diabetes mellitus SISTER FH: Parkinson's disease FATHER FH: hyperlipidemia MOTHER Kidney disease (Grandmother's brother) Negative for CKD / ESRD Social History Drug Use: none Marital Status: 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 Laboratory Results Past 24 Hours 11/16/16 06:40 11/16/16 06:40 Test 11/16/16 06:40 Red Blood Count 3.38 M/uL (4.2-5.4) Mean Corpuscular Volume 98.2 fL (80-100) Mean Corpuscular Hemoglobin 29.9 pg (25-34) Mean Corpuscular Hemoglobin Concent 30.4 g/dl (32-36) RDW Standard Deviation 58.6 fL (36.4-46.3) RDW Coefficient of Variation 16.5 % (11.5-14.5) Mean Platelet Volume 9.0 fL (7.4-10.4) Anion Gap 10.0 mmol/L (3-11) Est Creatinine Clear Calc Drug Dose 8.2 ml/min Estimated GFR () 8.2 Estimated GFR (Non- 7.1 BUN/Creatinine Ratio 8.0 (10-20) Calcium Level 9.1 mg/dl (8.5-10.1) Magnesium Level 2.5 mg/dl (1.8-2.4) Allergies Coded Allergies: Cephalosporins (Verified Allergy, Unknown, UNKNOWN, 11/15/16) Lisinopril (Verified Allergy, Unknown, FACE SWELLING, 11/15/16) Penicillins (Verified Allergy, Unknown, ANAPHYLAXIS, 11/15/16) Oxycodone (Verified Adverse Reaction, Intermediate, N/V, 11/15/16) Statins (Verified Adverse Reaction, Intermediate, PAIN-MUSCLE ACHES, ) Allopurinol (Verified Adverse Reaction, Unknown, gout, 11/15/16) Amlodipine (Verified Adverse Reaction, Unknown, A FIB, LEGS SWELLING, ) Niacin (Verified Adverse Reaction, Unknown, flushing, 11/15/16) Medications Current Inpatient Medications Medications (Trade) Dose Ordered Sig/Tien Route Start Time Stop Time Status Last Admin Dose Admin Calcium Acetate (Phoslo Cap) 2,668 mg TID PO 11/15/16 14:00 12/15/16 13:59 11/16/16 08:45 2,668 MG Cholecalciferol (Vitamin D Tab) 1,000 inter.unit QAM PO 11/16/16 09:00 12/16/16 08:59 11/16/16 08:46 1,000 INTER.UNIT Hydralazine HCl (Apresoline Tab) 50 mg QPM PO 11/15/16 21:00 12/15/16 20:59 11/15/16 20:39 50 MG Labetalol HCl (Normodyne Tab) 800 mg BID PO 11/15/16 21:00 12/15/16 20:59 11/15/16 20:37 800 MG Levothyroxine Sodium (Synthroid Tab) 50 mcg DAILYBB PO 11/16/16 06:00 12/16/16 05:59 11/16/16 05:48 50 MCG Enteral Nutritional Formula (Boost) 1 can DAILY PO 11/16/16 09:00 12/16/16 08:59 11/16/16 08:41 1 CAN Valsartan (Diovan Tab) 320 mg HS PO 11/15/16 21:00 12/15/16 20:59 11/15/16 20:38 320 MG Vitamin B Complex/ Vit C/Folic Acid (Nephrocaps) 1 cap QAM PO 11/16/16 09:00 12/16/16 08:59 11/16/16 08:44 1 CAP Brimonidine Tartrate (Alphagan-P 0.15% Oph Soln) 1 drops BID OP 11/15/16 21:00 12/15/16 20:59 11/16/16 08:42 1 DROPS Morphine Sulfate (MoRPHine SULFATE INJ) 2 mg Q4HWA PRN IV 11/15/16 10:30 11/29/16 10:29 Acetaminophen/ Hydrocodone Bitart ([place] 5/325 Tab) 1 TABLET FOR PAIN RATING... Q4H PRN PO 11/15/16 10:30 11/29/16 10:29 11/15/16 20:38 1 TAB Acetaminophen (Tylenol Tab) 1,000 mg Q8H PO 11/15/16 14:00 12/15/16 13:59 11/15/16 21:55 1,000 MG Magnesium Hydroxide (Milk Of Magnesia Susp) 30 ml Q6H PRN PO 11/15/16 10:30 12/15/16 10:29 Bisacodyl (Dulcolax Supp) 10 mg DAILY PRN [place] 11/15/16 10:30 12/15/16 10:29 Senna (Senokot Tab) 17.2 mg HS PO 11/15/16 21:00 12/15/16 20:59 11/15/16 20:39 17.2 MG Docusate Sodium (coLACE CAP) 100 mg BID PO 11/15/16 21:00 12/15/16 20:59 11/16/16 08:43 100 MG Al Hydrox/Mg Hydrox/Simethicone (Maalox Max Susp) 15 ml Q4H PRN PO 11/15/16 10:30 12/15/16 10:29 Multivitamins (Multivitamin Tab) 1 tab QAM PO 11/16/16 09:00 12/16/16 08:59 11/16/16 08:43 1 TAB Ondansetron HCl (Zofran Inj) 4 mg Q6H PRN IV 11/15/16 10:30 12/15/16 10:29 Ferrous Gluconate (Ferrous Gluconate Tab) 324 mg TIDM PO 11/15/16 12:30 12/15/16 12:29 11/16/16 08:41 324 MG Pantoprazole Sodium (Protonix Tab) 40 mg QAM PO 11/16/16 09:00 12/16/16 08:59 11/16/16 08:47 40 MG Tramadol HCl (Ultram Tab) 1 tablet for pain rating... Q4H PRN PO 11/15/16 10:30 12/15/16 10:29 Aspirin (Ecotrin Tab) 81 mg BID PO 11/15/16 21:00 12/15/16 20:59 11/16/16 08:43 81 MG Impression (1) End-stage renal disease on hemodialysis (2) S/P TKR (total knee replacement) (3) Pulmonary arterial hypertension (4) Hypertension (5) Hypothyroidism (6) Anemia (7) Cirrhosis (8) Ascites (9) Periumbilical hernia Patient admitted for elective L TKA. 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 Attempts to place AVF have been unsuccessful. Patient has a left upper arm AVG which is functional but frequently infiltrates and she still uses an IJ THC as her main vascular access. PMH - ESRD, HTN, hypothyroidism, cirrhosis, pulmonary HTN w/ cor pulmonale requiring periodic paracentesis, periumbilical hernia Recommendations END STAGE RENAL DISEASE: -- Heparin free HD today. Orders placed in EMR and HD RN notified -- Protect L upper arm AVG -- HD diet -- Daily Nephrovite HYPERTENSION: -- Blood pressure is acceptable at this time. Continue current antihypertensive regimen. No change at present ANEMIA: -- Hgb is within target range 10 - 11. No acute indication for BALWINDER at this time -- Patient receives Mircera 50 mcg IV every 2 weeks as outpatient -- Recommend stopping oral iron due to risk of constipation. Can provide IV iron w/ HD if needed
--- NOTE | 2016-11-16 10:40 | Hospitalist Progress Note ---
Hospitalist Progress Note Date of Service November 16, 2016. (Melissa Hale, FLASHC) Subjective Pt evaluation today including: conversation w/ patient, physical exam, chart review, lab review, review of studies, review of inpatient medication list Patient seen and evaluated. Bradycardic in the 50s on vitals. Labetalol held. She is due for HD dialysis. She is up ambulating. Pain is well controlled. States she feels well. + flatus but no BM. States she feels like she may be able to go today and takes Senokot. Abdomen is distended but non-tender. Verbalizes no other complaints at this time. Constitutional: No chills, No fever Eyes: No worsening of vision ENT: No nasal symptoms, No sore throat Respiratory: No cough, No shortness of breath Cardiovascular: No chest pain Abdomen: No constipation, No diarrhea, No nausea, No pain, No vomiting Musculoskeletal: + joint pain (minimal at site of L TKA), No calf pain Female : No dysuria Heme: No abnormal bleeding/bruising Skin: No rash (Melissa Hale, CRYSTAL-C) Medications Current Inpatient Medications Medications (Trade) Dose Ordered Sig/Tien Route Start Time Stop Time Status Last Admin Dose Admin Calcium Acetate (Phoslo Cap) 2,668 mg TID PO 11/15/16 14:00 12/15/16 13:59 11/16/16 08:45 2,668 MG Cholecalciferol (Vitamin D Tab) 1,000 inter.unit QAM PO 11/16/16 09:00 12/16/16 08:59 11/16/16 08:46 1,000 INTER.UNIT Hydralazine HCl (Apresoline Tab) 50 mg QPM PO 11/15/16 21:00 12/15/16 20:59 11/15/16 20:39 50 MG Labetalol HCl (Normodyne Tab) 800 mg BID PO 11/15/16 21:00 12/15/16 20:59 11/15/16 20:37 800 MG Levothyroxine Sodium (Synthroid Tab) 50 mcg DAILYBB PO 11/16/16 06:00 12/16/16 05:59 11/16/16 05:48 50 MCG Enteral Nutritional Formula (Boost) 1 can DAILY PO 11/16/16 09:00 12/16/16 08:59 11/16/16 08:41 1 CAN Valsartan (Diovan Tab) 320 mg HS PO 11/15/16 21:00 12/15/16 20:59 11/15/16 20:38 320 MG Vitamin B Complex/ Vit C/Folic Acid (Nephrocaps) 1 cap QAM PO 11/16/16 09:00 12/16/16 08:59 11/16/16 08:44 1 CAP Brimonidine Tartrate (Alphagan-P 0.15% Oph Soln) 1 drops BID OP 11/15/16 21:00 12/15/16 20:59 11/16/16 08:42 1 DROPS Morphine Sulfate (MoRPHine SULFATE INJ) 2 mg Q4HWA PRN IV 11/15/16 10:30 11/29/16 10:29 Acetaminophen/ Hydrocodone Bitart ([place] 5/325 Tab) 1 TABLET FOR PAIN RATING... Q4H PRN PO 11/15/16 10:30 11/29/16 10:29 11/15/16 20:38 1 TAB Acetaminophen (Tylenol Tab) 1,000 mg Q8H PO 11/15/16 14:00 12/15/16 13:59 11/15/16 21:55 1,000 MG Magnesium Hydroxide (Milk Of Magnesia Susp) 30 ml Q6H PRN PO 11/15/16 10:30 12/15/16 10:29 Bisacodyl (Dulcolax Supp) 10 mg DAILY PRN [place] 11/15/16 10:30 12/15/16 10:29 Senna (Senokot Tab) 17.2 mg HS PO 11/15/16 21:00 12/15/16 20:59 11/15/16 20:39 17.2 MG Docusate Sodium (coLACE CAP) 100 mg BID PO 11/15/16 21:00 12/15/16 20:59 11/16/16 08:43 100 MG Al Hydrox/Mg Hydrox/Simethicone (Maalox Max Susp) 15 ml Q4H PRN PO 11/15/16 10:30 12/15/16 10:29 Multivitamins (Multivitamin Tab) 1 tab QAM PO 11/16/16 09:00 12/16/16 08:59 11/16/16 08:43 1 TAB Ondansetron HCl (Zofran Inj) 4 mg Q6H PRN IV 11/15/16 10:30 12/15/16 10:29 Ferrous Gluconate (Ferrous Gluconate Tab) 324 mg TIDM PO 11/15/16 12:30 12/15/16 12:29 11/16/16 08:41 324 MG Pantoprazole Sodium (Protonix Tab) 40 mg QAM PO 11/16/16 09:00 12/16/16 08:59 11/16/16 08:47 40 MG Tramadol HCl (Ultram Tab) 1 tablet for pain rating... Q4H PRN PO 11/15/16 10:30 12/15/16 10:29 Aspirin (Ecotrin Tab) 81 mg BID PO 11/15/16 21:00 12/15/16 20:59 11/16/16 08:43 81 MG (Melissa Hale, MILAD) Objective Vital Signs Date Time Temp Pulse Resp B/P Pulse Ox O2 Delivery O2 Flow Rate FiO2 11/16/16 10:02 97 Room Air 11/16/16 08:45 57 147/75 11/16/16 07:19 36.4 53 16 157/82 94 Room Air 11/16/16 07:15 Room Air 11/16/16 03:00 36.5 52 14 137/67 94 Room Air 11/16/16 00:36 Room Air 11/15/16 23:44 36.7 65 15 154/73 91 Room Air 11/15/16 20:30 69 176/77 11/15/16 20:03 36.7 69 17 169/83 95 Room Air 11/15/16 15:35 36.7 61 17 168/68 97 Nasal Cannula 3.0 11/15/16 13:58 36.6 57 18 158/70 92 Room Air 11/15/16 12:57 36.6 61 16 159/74 91 Room Air 11/15/16 11:59 36.7 60 17 145/75 94 Nasal Cannula 2.0 11/15/16 11:30 36.4 61 16 160/73 100 Nasal Cannula 2.0 11/15/16 11:00 36.8 55 16 176/67 97 Nasal Cannula 2.0 11/15/16 11:00 97 Nasal Cannula 2.0 11/15/16 11:00 Nasal Cannula 2.0 11/15/16 10:50 36.6 52 18 140/67 98 Nasal Cannula 2 11/15/16 10:45 52 18 149/65 98 Nasal Cannula 2 11/15/16 10:35 53 18 129/60 98 Nasal Cannula 2 (Melissa Hale PA-C) Physical Exam General Appearance: WD/WN, no apparent distress Eyes: sclerae normal ENT: hearing grossly normal Neck: supple, no JVD, trachea midline Respiratory/Chest: lungs clear, no respiratory distress, no accessory muscle use, + decreased breath sounds Cardiovascular: regular rate, rhythm, no gallop, + systolic murmur, + pertinent finding (AV fistula (inactive) of LUE with minimal thrill and minimal bruit; AV fistula (small) in antecubital fossa with +thrill +bruit; HD catheter of R upper chest without tenderness, erythema, drainage) Abdomen: normal bowel sounds, non tender, + distended, + pertinent finding ( small midline abdominal hernia that is reducible without pain; large hernia of L side/flank nontender/soft reducible) Extremities: no pedal edema, no calf tenderness, + pertinent finding (L knee with RESHMA wrap that is clean/dry/intact; Drain present draining dark blood) Neurologic/Psychiatric: alert, oriented x 3 Skin: warm/dry, + pertinent finding (tanned/darkened skin, ashy-appearance) (Melissa Hale, PA-C) Laboratory Results Last 24 Hours Test 11/16/16 06:40 White Blood Count 8.65 K/uL Red Blood Count 3.38 M/uL Hemoglobin 10.1 g/dL Hematocrit 33.2 % Mean Corpuscular Volume 98.2 fL Mean Corpuscular Hemoglobin 29.9 pg Mean Corpuscular Hemoglobin Concent 30.4 g/dl RDW Standard Deviation 58.6 fL RDW Coefficient of Variation 16.5 % Platelet Count 202 K/uL Mean Platelet Volume 9.0 fL Sodium Level 137 mmol/L Potassium Level 4.6 mmol/L Chloride Level 102 mmol/L Carbon Dioxide Level 25 mmol/L Anion Gap 10.0 mmol/L Blood Urea Nitrogen 46 mg/dl Creatinine 5.70 mg/dl Est Creatinine Clear Calc Drug Dose 8.2 ml/min Estimated GFR () 8.2 Estimated GFR (Non- 7.1 BUN/Creatinine Ratio 8.0 Random Glucose 101 mg/dl Calcium Level 9.1 mg/dl Magnesium Level 2.5 mg/dl (Melissa Hale PA-C) Assessment and Plan Patient is a 65 y/o female, with PMHx of HTN, hypothyroidism, and ESRD on dialysis M,W,F, S/P L TKA by Dr. Riggs on 11/15. S/P L TKA on 11/15 - Dr. Riggs - Surgical management, pain management, PT/OT, and DVT prophylaxis as per primary team - DVT prophylaxis - ASA 81 mg BID, WALE/SCDs HTN: - High systolic readings but normal diastolics - Hydralazine 50 mg daily, Labetalol 800 mg BID, Diovan 320 mg HS - with hold parameters as necessary Hypothyroidism: - Synthroid 50 mcg daily ESRD on HD (M,W,F): Behavioral Health Assistant, Dr. Menon - Nephrology following - recommendations reviewed - plan for dialysis today without heparin Code Status: FULL RESUSCITATION Disposition: Discharge as per primary team Thank you for this consultation. We will continue to follow throughout hospital stay. (Melissa Hale, FLASHC)
[2016-11-16] MEDS: HYDROCODONE/ACETAMOPHEN 5/325MG TAB PO PRN ×2 (10:43→21:34)
[2016-11-16] MEDS: SENNA 8.6 MG TAB PO SCH (21:40)
[2016-11-16] MEDS: VALSARTAN 80 MG TAB PO SCH (21:44)
[2016-11-17] MEDS: LEVOTHYROXINE 50 MCG TAB PO SCH (05:15)
[2016-11-17] MEDS: ACETAMINOPHEN 500 MG TAB PO SCH ×3 (05:16→21:48)
[2016-11-17 05:39] LABS: MEAN CELL VOLUME 98.2 fL (80-100); MEAN CORPUSCULAR HEMOGLOBIN 31.6 pg (25-34); MEAN CORPUSCULAR HGB CONC 32.2 g/dl (32-36); PLATELET COUNT 189 K/uL (130-400); RED BLOOD COUNT 3.26 M/uL (4.2-5.4); WHITE BLOOD COUNT 7.21 K/uL (4.8-10.8)
[2016-11-17 06:33] LABS: BUN/CREATININE RATIO 7.3 (10-20); CALCIUM 9.3 mg/dl (8.5-10.1); CREATININE 3.8 mg/dl (0.60-1.20); FERRITIN 1069.5 ng/ml (8.0-388.0); POTASSIUM 4.2 mmol/L (3.5-5.1)
--- NOTE | 2016-11-17 07:10 | Orthopedic Progress Note ---
Orthopedic Progress Note Date of Service November 17, 2016. Subjective Post OP Day: 2 Reports: feeling well, pain controlled w PO medications, Denies: SOB, calf pain , chest pain, complaints, light headedness, nausea / vomiting Objective calves soft nontender, N/V intact, capillary refill less than 2 sec., dressing C /D/I, A&O x3, toes mobile Date Time Temp Pulse Resp B/P Pulse Ox O2 Delivery O2 Flow Rate FiO2 11/16/16 23:55 Room Air 11/16/16 22:55 36.5 69 16 144/71 100 Room Air 11/16/16 22:36 55 132/68 11/16/16 19:38 36.6 58 18 139/80 93 Room Air 11/16/16 19:15 Room Air 11/16/16 18:01 36.7 56 18 136/84 98 Room Air 3.0 11/16/16 17:30 51 129/73 11/16/16 17:30 36.5 51 129/73 11/16/16 17:15 51 120/68 11/16/16 17:00 61 121/64 11/16/16 16:59 55 113/68 11/16/16 16:45 55 113/68 11/16/16 16:30 54 124/59 11/16/16 16:15 52 120/65 11/16/16 16:00 57 124/63 11/16/16 15:45 51 105/67 11/16/16 15:30 54 124/75 11/16/16 15:15 55 119/61 11/16/16 15:00 54 118/65 11/16/16 14:45 54 115/60 11/16/16 14:30 46 115/64 11/16/16 14:15 57 127/67 11/16/16 14:06 42 124/53 11/16/16 14:05 36.5 56 128/64 11/16/16 12:56 36.5 58 18 161/87 98 Room Air 11/16/16 10:02 97 Room Air 11/16/16 09:05 57 91 11/16/16 08:45 57 147/75 11/16/16 07:19 36.4 53 16 157/82 94 Room Air 11/16/16 07:15 Room Air Laboratory Results 24 Hours: Test 11/17/16 05:11 Hematocrit 32.0 % Hemoglobin 10.3 g/dL Assessment & Plan Assessment: POD #2 s/p Left TKA -pt/ot -dvt proph with syed/scd/asa -will discuss with RASHAD wilson HS rehab stay HTN: Hydralazine 50 mg daily, Labetalol 800 mg BID, Diovan 320 mg HS Hypothyroidism has resumed her Synthroid ESRD, on dialysis M,W,F: nephology has been consulted, tolerated dialysis well yesterday, scheduled again tomorrow am. Discharge Planning Discharge Planning: uncertain
[2016-11-17 07:24] VITALS: BP 164/70; PULSE 59; TEMP 36.7; O2SAT 93
[2016-11-17] MEDS: HYDROCODONE/ACETAMOPHEN 5/325MG TAB PO PRN ×2 (07:40→23:48)
[2016-11-17 08:46] VITALS: BP 133/88; PULSE 65
[2016-11-17] MEDS: FERROUS GLUCONATE 324 MG TAB PO SCH ×3 (08:47→17:53)
[2016-11-17] MEDS: BRIMONIDINE TARTRATE-P 0.15% 5 ML BTL OP SCH ×2 (08:47→20:57)
[2016-11-17] MEDS: BOOST VANILLA PO SCH ×2 (08:48)
[2016-11-17] MEDS: ASPIRIN 81 MG ECTAB PO SCH ×2 (08:49→20:58)
[2016-11-17] MEDS: DOCUSATE SODIUM 100 MG CAP PO SCH ×2 (08:49→20:59)
[2016-11-17] MEDS: MULTIVITAMIN TAB PO SCH (08:50)
[2016-11-17] MEDS: NEPHROCAPS PO SCH (08:50)
[2016-11-17] MEDS: CHOLECALCIFEROL 1000 INTER.UNIT TAB PO SCH (08:51)
[2016-11-17] MEDS: CALCIUM ACETATE 667MG GELCAP PO SCH ×3 (08:51→21:00)
[2016-11-17] MEDS: PANTOprazole SOD 40 MG TAB PO SCH (08:52)
[2016-11-17] MEDS: LABETALOL HCL 200 MG TAB PO SCH ×2 (09:00→21:00)
--- NOTE | 2016-11-17 09:40 | Nephrology Progress Note ---
Nephrology Progress Note Date of Service November 17, 2016. Chief Complaint Provide inpatient HD for this patient with ESRD admitted for elective L TKA Subjective Ms. Harmon was seen & examined in her hospital room this morning. She was alert & oriented x 3. She was tolerating her diet without complication. Ms. Harmon reported that she up yesterday and able to ambulate in the hallway a short distance with assistance. She currently denied fever, angina, dyspnea or abdominal discomfort. She complains of left knee discomfort but notes that overall it is improved. Ms. Harmon was dialyzed yesterday without complication. She voices no new medical concerns. Review of Systems Constitutional: No fever Cardiovascular: No chest pain Respiratory: No dyspnea at rest Abdomen: No nausea, No pain, No vomiting Extremities: No leg edema A complete review of systems was performed. Pertinent positives are noted above. All other systems are negative. Vital Signs Last 8 Hrs Date Time Temp Pulse Resp B/P Pulse Ox O2 Delivery O2 Flow Rate FiO2 11/17/16 08:46 65 133/88 11/17/16 07:30 Room Air 11/17/16 07:24 36.7 59 16 164/70 93 Room Air I & O 24-Hour Column 11/17/16 07:59 Output Total 2270 ml Balance -2270 ml Last Recorded Weight Weight (Kilograms): 66.700 Physical Exam General Appearance: no apparent distress Head: atraumatic Eyes: PERRL, EOMI Neck: no adenopathy, + pertinent finding (R IJ THC with clean dry dressing in place) Respiratory/Chest: lungs clear Cardiovascular: regular rate, rhythm Abdomen/GI: normal bowel sounds, non tender, soft Extremities/Musculoskelatal: no calf tenderness, no pedal edema, + pertinent finding (L upper arm AVG + gruit) Neurologic/Psych: alert, oriented x 3 Family History Diabetes mellitus SISTER FH: Parkinson's disease FATHER FH: hyperlipidemia MOTHER Kidney disease (Grandmother's brother) Negative for CKD / ESRD Social History Drug Use: none Marital Status: 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 Laboratory Results Past 24 Hours 11/17/16 05:11 11/17/16 05:11 Test 11/17/16 05:11 Red Blood Count 3.26 M/uL (4.2-5.4) Mean Corpuscular Volume 98.2 fL (80-100) Mean Corpuscular Hemoglobin 31.6 pg (25-34) Mean Corpuscular Hemoglobin Concent 32.2 g/dl (32-36) RDW Standard Deviation 59.2 fL (36.4-46.3) RDW Coefficient of Variation 16.9 % (11.5-14.5) Mean Platelet Volume 9.0 fL (7.4-10.4) Anion Gap 10.0 mmol/L (3-11) Est Creatinine Clear Calc Drug Dose 12.9 ml/min Estimated GFR () 13.4 Estimated GFR (Non- 11.6 BUN/Creatinine Ratio 7.3 (10-20) Calcium Level 9.3 mg/dl (8.5-10.1) Iron Level 39 mcg/dl (35-150) Total Iron Binding Capacity 174 mcg/dl (250-450) Transferrin 141 mg/dl (200-360) Transferrin % Saturation 20 % (15-50) Ferritin 1069.5 ng/ml (8.0-388.0) Allergies Coded Allergies: Cephalosporins (Verified Allergy, Unknown, UNKNOWN, 11/15/16) Lisinopril (Verified Allergy, Unknown, FACE SWELLING, 11/15/16) Penicillins (Verified Allergy, Unknown, ANAPHYLAXIS, 11/15/16) Oxycodone (Verified Adverse Reaction, Intermediate, N/V, 11/15/16) Statins (Verified Adverse Reaction, Intermediate, PAIN-MUSCLE ACHES, ) Allopurinol (Verified Adverse Reaction, Unknown, gout, 11/15/16) Amlodipine (Verified Adverse Reaction, Unknown, A FIB, LEGS SWELLING, ) Niacin (Verified Adverse Reaction, Unknown, flushing, 11/15/16) Medications Current Inpatient Medications Medications (Trade) Dose Ordered Sig/Tien Route Start Time Stop Time Status Last Admin Dose Admin Calcium Acetate (Phoslo Cap) 2,668 mg TID PO 11/15/16 14:00 12/15/16 13:59 11/17/16 08:51 2,668 MG Cholecalciferol (Vitamin D Tab) 1,000 inter.unit QAM PO 11/16/16 09:00 12/16/16 08:59 11/17/16 08:51 1,000 INTER.UNIT Hydralazine HCl (Apresoline Tab) 50 mg QPM PO 11/15/16 21:00 12/15/16 20:59 11/16/16 22:35 50 MG Labetalol HCl (Normodyne Tab) 800 mg BID PO 11/15/16 21:00 12/15/16 20:59 11/15/16 20:37 800 MG Levothyroxine Sodium (Synthroid Tab) 50 mcg DAILYBB PO 11/16/16 06:00 12/16/16 05:59 11/17/16 05:15 50 MCG Enteral Nutritional Formula (Boost) 1 can DAILY PO 11/16/16 09:00 12/16/16 08:59 11/17/16 08:48 1 CAN Valsartan (Diovan Tab) 320 mg HS PO 11/15/16 21:00 12/15/16 20:59 11/16/16 21:44 320 MG Vitamin B Complex/ Vit C/Folic Acid (Nephrocaps) 1 cap QAM PO 11/16/16 09:00 12/16/16 08:59 11/17/16 08:50 1 CAP Brimonidine Tartrate (Alphagan-P 0.15% Oph Soln) 1 drops BID OP 11/15/16 21:00 12/15/16 20:59 11/17/16 08:47 1 DROPS Morphine Sulfate (MoRPHine SULFATE INJ) 2 mg Q4HWA PRN IV 11/15/16 10:30 11/29/16 10:29 Acetaminophen/ Hydrocodone Bitart ([place] 5/325 Tab) 1 TABLET FOR PAIN RATING... Q4H PRN PO 11/15/16 10:30 11/29/16 10:29 11/17/16 07:40 1 TAB Acetaminophen (Tylenol Tab) 1,000 mg Q8H PO 11/15/16 14:00 12/15/16 13:59 11/17/16 05:16 1,000 MG Magnesium Hydroxide (Milk Of Magnesia Susp) 30 ml Q6H PRN PO 11/15/16 10:30 12/15/16 10:29 Bisacodyl (Dulcolax Supp) 10 mg DAILY PRN [place] 11/15/16 10:30 12/15/16 10:29 Senna (Senokot Tab) 17.2 mg HS PO 11/15/16 21:00 12/15/16 20:59 11/16/16 21:40 17.2 MG Docusate Sodium (coLACE CAP) 100 mg BID PO 11/15/16 21:00 12/15/16 20:59 11/17/16 08:49 100 MG Al Hydrox/Mg Hydrox/Simethicone (Maalox Max Susp) 15 ml Q4H PRN PO 11/15/16 10:30 12/15/16 10:29 Multivitamins (Multivitamin Tab) 1 tab QAM PO 11/16/16 09:00 12/16/16 08:59 11/17/16 08:50 1 TAB Ondansetron HCl (Zofran Inj) 4 mg Q6H PRN IV 11/15/16 10:30 12/15/16 10:29 Ferrous Gluconate (Ferrous Gluconate Tab) 324 mg TIDM PO 11/15/16 12:30 12/15/16 12:29 11/17/16 08:47 324 MG Pantoprazole Sodium (Protonix Tab) 40 mg QAM PO 11/16/16 09:00 12/16/16 08:59 11/17/16 08:52 40 MG Tramadol HCl (Ultram Tab) 1 tablet for pain rating... Q4H PRN PO 11/15/16 10:30 12/15/16 10:29 Aspirin (Ecotrin Tab) 81 mg BID PO 11/15/16 21:00 12/15/16 20:59 11/17/16 08:49 81 MG Impression (1) End-stage renal disease on hemodialysis (2) S/P TKR (total knee replacement) (3) Pulmonary arterial hypertension (4) Hypertension (5) Hypothyroidism (6) Anemia (7) Cirrhosis (8) Ascites (9) Periumbilical hernia Patient admitted for elective L TKA. 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 Attempts to place AVF have been unsuccessful. Patient has a left upper arm AVG which is functional but frequently infiltrates and she still uses an IJ THC as her main vascular access. PMH - ESRD, HTN, hypothyroidism, cirrhosis, pulmonary HTN w/ cor pulmonale requiring periodic paracentesis, periumbilical hernia Recommendations END STAGE RENAL DISEASE: -- No acute indication for HD today. Will schedule next treatment for tomorrow am. -- Protect L upper arm AVG -- HD diet -- Daily Nephrovite HYPERTENSION: -- Blood pressure is acceptable at this time. Continue current antihypertensive regimen. No change at present ANEMIA: -- Hgb is within target range 10 - 11. No acute indication for BALWINDER at this time -- Patient receives Mircera 50 mcg IV every 2 weeks as outpatient -- Recommend stopping oral iron due to risk of constipation. Can provide IV iron w/ HD if needed
--- NOTE | 2016-11-17 11:28 | Hospitalist Progress Note ---
Hospitalist Progress Note Date of Service November 17, 2016. (Melissa Hale PA-C) Subjective Pt evaluation today including: conversation w/ patient, physical exam, chart review, lab review, review of studies, conversation w/ hearing aid consultant (Dr. Robles) , review of inpatient medication list Voiding: crawford catheter in place Patient seen and evaluated. No acute events overnight. Received HD dialysis yesterday and tolerate well. Continues to ambulate and reporting pain is well controlled. + flatus but still no BM but states she does not feel constipated Abdomen is distended but soft and at baseline per patient. Reports due to liver disease she gets taps for fluid and is due in December for a tap. Continues to be bradycardic with beta fortino held. Anticipate adjusting hypertensive medications to give the coverage necessary but reduce bradycardia. Will discuss with nephrology first to prevent issues with hypotension related to dialysis. Constitutional: No chills, No fever Respiratory: No shortness of breath Cardiovascular: No chest pain Abdomen: No constipation, No diarrhea, No nausea, No pain, No vomiting Musculoskeletal: No calf pain, No swelling Female : No dysuria Skin: No rash (Melissa Hale PA-C) Medications Current Inpatient Medications Medications (Trade) Dose Ordered Sig/Tien Route Start Time Stop Time Status Last Admin Dose Admin Calcium Acetate (Phoslo Cap) 2,668 mg TID PO 11/15/16 14:00 12/15/16 13:59 11/17/16 08:51 2,668 MG Cholecalciferol (Vitamin D Tab) 1,000 inter.unit QAM PO 11/16/16 09:00 12/16/16 08:59 11/17/16 08:51 1,000 INTER.UNIT Hydralazine HCl (Apresoline Tab) 50 mg QPM PO 11/15/16 21:00 12/15/16 20:59 11/16/16 22:35 50 MG Labetalol HCl (Normodyne Tab) 800 mg BID PO 11/15/16 21:00 12/15/16 20:59 11/15/16 20:37 800 MG Levothyroxine Sodium (Synthroid Tab) 50 mcg DAILYBB PO 11/16/16 06:00 12/16/16 05:59 11/17/16 05:15 50 MCG Enteral Nutritional Formula (Boost) 1 can DAILY PO 11/16/16 09:00 12/16/16 08:59 11/17/16 08:48 1 CAN Valsartan (Diovan Tab) 320 mg HS PO 11/15/16 21:00 12/15/16 20:59 11/16/16 21:44 320 MG Vitamin B Complex/ Vit C/Folic Acid (Nephrocaps) 1 cap QAM PO 11/16/16 09:00 12/16/16 08:59 11/17/16 08:50 1 CAP Brimonidine Tartrate (Alphagan-P 0.15% Oph Soln) 1 drops BID OP 11/15/16 21:00 12/15/16 20:59 11/17/16 08:47 1 DROPS Morphine Sulfate (MoRPHine SULFATE INJ) 2 mg Q4HWA PRN IV 11/15/16 10:30 11/29/16 10:29 Acetaminophen/ Hydrocodone Bitart ([place] 5/325 Tab) 1 TABLET FOR PAIN RATING... Q4H PRN PO 11/15/16 10:30 11/29/16 10:29 11/17/16 07:40 1 TAB Acetaminophen (Tylenol Tab) 1,000 mg Q8H PO 11/15/16 14:00 12/15/16 13:59 11/17/16 05:16 1,000 MG Magnesium Hydroxide (Milk Of Magnesia Susp) 30 ml Q6H PRN PO 11/15/16 10:30 12/15/16 10:29 Bisacodyl (Dulcolax Supp) 10 mg DAILY PRN [place] 11/15/16 10:30 12/15/16 10:29 Senna (Senokot Tab) 17.2 mg HS PO 11/15/16 21:00 12/15/16 20:59 11/16/16 21:40 17.2 MG Docusate Sodium (coLACE CAP) 100 mg BID PO 11/15/16 21:00 12/15/16 20:59 11/17/16 08:49 100 MG Al Hydrox/Mg Hydrox/Simethicone (Maalox Max Susp) 15 ml Q4H PRN PO 11/15/16 10:30 12/15/16 10:29 Ondansetron HCl (Zofran Inj) 4 mg Q6H PRN IV 11/15/16 10:30 12/15/16 10:29 Ferrous Gluconate (Ferrous Gluconate Tab) 324 mg TIDM PO 11/15/16 12:30 12/15/16 12:29 11/17/16 12:28 324 MG Pantoprazole Sodium (Protonix Tab) 40 mg QAM PO 11/16/16 09:00 12/16/16 08:59 11/17/16 08:52 40 MG Tramadol HCl (Ultram Tab) 1 tablet for pain rating... Q4H PRN PO 11/15/16 10:30 12/15/16 10:29 Aspirin (Ecotrin Tab) 81 mg BID PO 11/15/16 21:00 12/15/16 20:59 11/17/16 08:49 81 MG Heparin Sodium (Porcine) 2000 unit 2,000 unit TODAY@0600 IV 11/18/16 06:00 11/18/16 18:00 Epoetin Judah/ Syringe (Procrit Inj/ Syringe) 0.35 ml @ 1 mls/min TODAY@0600 IV. 11/18/16 06:00 11/18/16 18:00 (Melissa Hale, MILAD) Objective Vital Signs Date Time Temp Pulse Resp B/P Pulse Ox O2 Delivery O2 Flow Rate FiO2 11/17/16 08:46 65 133/88 11/17/16 07:30 Room Air 11/17/16 07:24 36.7 59 16 164/70 93 Room Air 11/16/16 23:55 Room Air 11/16/16 22:55 36.5 69 16 144/71 100 Room Air 11/16/16 22:36 55 132/68 11/16/16 19:38 36.6 58 18 139/80 93 Room Air 11/16/16 19:15 Room Air 11/16/16 18:01 36.7 56 18 136/84 98 Room Air 3.0 11/16/16 17:30 51 129/73 11/16/16 17:30 36.5 51 129/73 11/16/16 17:15 51 120/68 11/16/16 17:00 61 121/64 11/16/16 16:59 55 113/68 11/16/16 16:45 55 113/68 11/16/16 16:30 54 124/59 11/16/16 16:15 52 120/65 11/16/16 16:00 57 124/63 11/16/16 15:45 51 105/67 11/16/16 15:30 54 124/75 11/16/16 15:15 55 119/61 11/16/16 15:00 54 118/65 11/16/16 14:45 54 115/60 11/16/16 14:30 46 115/64 11/16/16 14:15 57 127/67 11/16/16 14:06 42 124/53 11/16/16 14:05 36.5 56 128/64 11/16/16 12:56 36.5 58 18 161/87 98 Room Air (Melissa Hale PA-C) Physical Exam General Appearance: WD/WN, no apparent distress Eyes: sclerae normal ENT: hearing grossly normal Neck: supple, no JVD, trachea midline Respiratory/Chest: lungs clear, normal breath sounds, no respiratory distress, no accessory muscle use Cardiovascular: regular rate, rhythm, no gallop, + systolic murmur, + pertinent finding (HD port intact without erythema, tenderness, discharge) Abdomen: normal bowel sounds, non tender, soft, + distended, + pertinent finding (mild caput medusa visible on abdomen; small midline umbilical hernia ( reducible); large L flank hernia (reducible)) Extremities: no pedal edema, no calf tenderness, + pertinent finding (AV fistula of bilateral upper extremities (inactive)) Neurologic/Psychiatric: alert, oriented x 3 Skin: warm/dry, + pertinent finding (tanned/dark/ashy skin) (Melissa Hale, PA-C) Laboratory Results Last 24 Hours Test 11/17/16 05:11 White Blood Count 7.21 K/uL Red Blood Count 3.26 M/uL Hemoglobin 10.3 g/dL Hematocrit 32.0 % Mean Corpuscular Volume 98.2 fL Mean Corpuscular Hemoglobin 31.6 pg Mean Corpuscular Hemoglobin Concent 32.2 g/dl RDW Standard Deviation 59.2 fL RDW Coefficient of Variation 16.9 % Platelet Count 189 K/uL Mean Platelet Volume 9.0 fL Sodium Level 135 mmol/L Potassium Level 4.2 mmol/L Chloride Level 101 mmol/L Carbon Dioxide Level 24 mmol/L Anion Gap 10.0 mmol/L Blood Urea Nitrogen 28 mg/dl Creatinine 3.80 mg/dl Est Creatinine Clear Calc Drug Dose 12.9 ml/min Estimated GFR () 13.4 Estimated GFR (Non- 11.6 BUN/Creatinine Ratio 7.3 Random Glucose 87 mg/dl Calcium Level 9.3 mg/dl Iron Level 39 mcg/dl Total Iron Binding Capacity 174 mcg/dl Transferrin 141 mg/dl Transferrin % Saturation 20 % Ferritin 1069.5 ng/ml (Melissa Hale PA-C) Assessment and Plan Patient is a 65 y/o female, with PMHx of HTN, hypothyroidism, and ESRD on dialysis M,W,F, S/P L TKA by Dr. Riggs on 11/15. S/P L TKA on 11/15 - Dr. Riggs - Surgical management, pain management, PT/OT, and DVT prophylaxis as per primary team - DVT prophylaxis - ASA 81 mg BID, WALE/SCDs HTN: - Hydralazine 50 mg daily, Labetalol 800 mg BID, Diovan 320 mg HS - with hold parameters as necessary -- Continues to have bradycardia with Labetalol held - consideration for lowered dose with increase in Hydralazine - will discuss with nephrology prior to implementation as to not create hypotension in regards to dialysis Hypothyroidism: - Synthroid 50 mcg daily ESRD on HD (M,W,F): [employer], Dr. Menon - Nephrology following - recommendations reviewed - plan for dialysis tomorrow Code Status: FULL RESUSCITATION Disposition: Discharge as per primary team Thank you for this consultation. We will continue to follow throughout hospital stay. Discharge planning: rehab hospital (Melissa Hale PA-C)
[2016-11-17] MEDS: MAGNESIUM HYDROXIDE SUSP 30 ML UDC PO PRN (14:05)
[2016-11-17 15:24] VITALS: BP 168/79; PULSE 55; TEMP 36.4; O2SAT 95
[2016-11-17 20:55] VITALS: BP 159/72; PULSE 58
[2016-11-17] MEDS: VALSARTAN 80 MG TAB PO SCH (20:58)
[2016-11-17] MEDS: SENNA 8.6 MG TAB PO SCH (21:02)
[2016-11-17 23:35] VITALS: BP 159/68; PULSE 56; TEMP 36.4; O2SAT 95
[2016-11-18] VITALS (23 sets, daily range): BP systolic 105–167; BP diastolic 52–81; PULSE 55–76; TEMP 36.3–36.7; O2SAT 94–99
[2016-11-18] MEDS: ACETAMINOPHEN 500 MG TAB PO SCH ×3 (05:52→21:55)
[2016-11-18] MEDS: LEVOTHYROXINE 50 MCG TAB PO SCH (05:53)
[2016-11-18] MEDS: HYDROCODONE/ACETAMOPHEN 5/325MG TAB PO PRN ×3 (05:54→20:26)
[2016-11-18] MEDS ORDERED: EPOETIN ALFA 10,000 UNITS/ML VIAL IV. ONE (06:00)
[2016-11-18] MEDS ORDERED: HEPARIN SOD (PORCINE) 1000 UNIT/ML 10 ML VIAL IV SCH (06:00)
[2016-11-18] MEDS ORDERED: EPOETIN ALFA INJ 7,000 UNITS in SYRINGE 0 ML IV. SCH (06:00)
--- NOTE | 2016-11-18 07:15 | Discharge Instructions ---
Discharge Instructions Date of Service November 18, 2016. Admission Reason for Admission: Left Knee Osteoarthritis Discharge Discharge Diagnosis / Problem: Left Total Knee Replacement Discharge Goals Goal(s): Decrease discomfort, Improve function, Increase independence, Improve nutritional status Activity Recommendations Activity Level: Up Ad Nicci Therapies: Physical Therapy (TKA protocol, WBAT with walker) Weightbearing Status: Left weightbearing (as tolerated) . Additional Information Patient informed of condition: Yes Advance Directives: No DNR: No Level of Care: Acute Rehab Communicable Disease: No Prognosis: Stable Baltazar Catheter: No Instructions / Follow-Up Instructions / Follow-Up ACTIVITY RECOMMENDATIONS: SELF CARE INSTRUCTIONS AFTER TOTAL KNEE REPLACEMENT A. You may need to continue a physical therapy program after discharge from the hospital. There are several options available to you. Your doctor will assist you in selecting the best one for you. 1. An out-patient facility 2 to 3 times a week for therapy or home therapy. 2. Continue working on all exercises taught to you in the hospital. Your goals should be to increase bending of your knee to 90 degrees and beyond and to fully straighten your knee. B. You may progress at your own pace from walking with a walker or crutches to a cane; then to no assistive devices. C. Make walking a part of your daily routine. Be up as much as comfortable with rest periods throughout the day. Rest with leg elevation is very important. Use the ice wrap frequently for the first 3-4 weeks. D. There are no restrictions on activities. You may ride in a car, shop, participate in network support specialist and all social activities. E. Wear the long elastic stockings (WALE hose) 20 hours a day for 2 weeks after surgery. They can be removed several times a day for laundering and for a bath. F. You may shower, no tub baths until cleared by your doctor. SPECIAL CARE INSTRUCTIONS: VERY IMPORTANT TO READ AND REVIEW A. There are a few signs you need to watch for after you are home. Call [facility] if you notice any of the followin. Increased severe knee pain. Some pain is expected especially when you exercise. 2. Increased swelling in your leg or knee; pain or swelling of the calf muscle in either lower leg. 3. Any fluid drainage from the incision. 4. Shortness of breath or chest pain. B. Please call [facility] at if you have any concerns or questions about your operation or recovery. The doctor or his nurse will return your call promptly. C. You must take antibiotics before dental work, bladder, bowel or other surgery. Your doctor will provide you with a permanent care to carry describing this precaution. IMPORTANT: * REMEMBER TO TAKE ASPIRIN, 81 MG, TWICE DAILY FOR 4 WEEKS UNLESS OTHERWISE DIRECTED. THIS IS YOUR BLOOD THINNER. * HIGH RISK PATIENTS MAY BE PRESCRIBED A STRONGER BLOOD THINNER. THIS WILL BE PROVIDED AT DISCHARGE. * CALL IF INCREASED PAIN, REDNESS, DRAINAGE OR FEVER GREATER THAT 101. * WEAR WALE HOSE 20 HOURS PER DAY FOR 2 WEEKS. * DERMABOND Prineo- This is a mesh tape dressing that is covered with glue. It should remain in place until the incision is properly healed, usually 10-14 days. This dressing is designed to naturally slough off. You may trim the excess mesh tape as it peels off. Incision may be briefly wet in a shower. Dry immediately by blotting with a clean, dry towel. Do not bath or swim until instructed by your doctor. Do not scratch, rub, or pick at the dressing. Do not apply any topical ointments or lotions until dressing is completely removed and/or instructed by your doctor. There may be a small piece of suture material at one end of your incision. Do not pull or trim this. If it is bothersome or catching on clothing, you may cover it with a band-aid. FOLLOW UP VISIT: If appointment is not already scheduled: Please call [facility] [place] to make a follow-up appointment for 2 weeks after your surgery at . Current Hospital Diet Patient's current hospital diet: Renal Diet Discharge Diet Recommended Diet: Renal Diet Procedures Procedures Performed: Left Total Knee Arthroplasty Pending Studies Studies pending at discharge: no Physician Orders On Transfer Dressing Changes: DERMABOND Prineo- This is a mesh tape dressing that is covered with glue. It should remain in place until the incision is properly healed, usually 10-14 days. This dressing is designed to naturally slough off. You may trim the excess mesh tape as it peels off. Incision may be briefly wet in a shower. Dry immediately by blotting with a clean, dry towel. Do not bath or swim until instructed by your doctor. Do not scratch, rub, or pick at the dressing. Do not apply any topical ointments or lotions until dressing is completely removed and/or instructed by your doctor. There may be a small piece of suture material at one end of your incision. Do not pull or trim this. If it is bothersome or catching on clothing, you may cover it with a band-aid. Additional Orders: Patient to continue with her regular dialysis schedule of every monday/monday /monday. her last treatment was on 11/18/16 while inpatient at [facility] Laboratory Results Hemoglobin A1c Test 10/18/16 11:40 Range/Units Estimated Average Glucose 85 mg/dl Hemoglobin A1c 4.6 4.5-5.6 % Medical Emergencies . Who to Call and When: Medical Emergencies: If at any time you feel your situation is an emergency, please call 911 immediately. . Non-Emergent Contact Non-Emergency issues call your: Primary Care Provider, Surgeon . . "Provider Documentation" section prepared by Neil Blanco. . Science Writer Recommendations Science Writer Recommendations: Per Dr Robles: Patient admitted for elective L TKA. 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 Attempts to place AVF have been unsuccessful. Patient has a left upper arm AVG which is functional but frequently infiltrates and she still uses an IJ THC as her main vascular access. PMH - ESRD, HTN, hypothyroidism, cirrhosis, pulmonary HTN w/ cor pulmonale requiring periodic paracentesis, periumbilical hernia Recommendations END STAGE RENAL DISEASE: -- Protect L upper arm AVG -- HD diet -- Daily Nephrovite HYPERTENSION: -- Blood pressure is acceptable at this time. Continue current antihypertensive regimen. No change at present ANEMIA: -- Hgb is within target range 10 - 11. No acute indication for BALWINDER at this time -- Patient receives Mircera 50 mcg IV every 2 weeks as outpatient -- Recommend stopping oral iron due to risk of constipation. Can provide IV iron w/ HD if needed Core Measure Problem Core Measures: None [place] Drug Monitoring Program Search Results: patient reviewed within database, no issues identified
[2016-11-18] MEDS ORDERED: HYDR-5688 PO (07:19)
[2016-11-18] MEDS ORDERED: ACET-1138 PO (07:19)
[2016-11-18] MEDS ORDERED: ULT50X PO (07:19)
[2016-11-18] MEDS ORDERED: ASPEC81 PO (07:19)
--- NOTE | 2016-11-18 08:11 | Hospitalist Progress Note ---
Hospitalist Progress Note Date of Service November 18, 2016. (Melissa Hale PA-C) Subjective Pt evaluation today including: conversation w/ patient, physical exam, chart review, lab review, review of studies, review of inpatient medication list Patient seen and evaluated. Currently undergoing dialysis. Patient remains bradycardic but asymptomatic even with labetalol held. Patient is due for possible D/C today to rehab. If patient remains overnight will adjust BP meds. Did give recommendations in consultation recommendations for D/C instructions. Did discuss medication adjustments with nephrology for concern to not alter BP drastically in the setting of dialysis. Patient continues to feel well and verbalizes no new complaints. Constitutional: No chills, No fever ENT: No nasal symptoms, No sore throat Respiratory: No shortness of breath Cardiovascular: No chest pain Abdomen: No constipation, No diarrhea, No nausea, No pain, No vomiting Musculoskeletal: No calf pain, No swelling Female : No dysuria Skin: No rash (Melissa Hale PA-C) Medications Current Inpatient Medications Medications (Trade) Dose Ordered Sig/Tien Route Start Time Stop Time Status Last Admin Dose Admin Calcium Acetate (Phoslo Cap) 2,668 mg TID PO 11/15/16 14:00 12/15/16 13:59 11/17/16 21:00 1,334 MG Cholecalciferol (Vitamin D Tab) 1,000 inter.unit QAM PO 11/16/16 09:00 12/16/16 08:59 11/17/16 08:51 1,000 INTER.UNIT Hydralazine HCl (Apresoline Tab) 50 mg QPM PO 11/15/16 21:00 12/15/16 20:59 11/17/16 21:01 50 MG Labetalol HCl (Normodyne Tab) 800 mg BID PO 11/15/16 21:00 12/15/16 20:59 11/15/16 20:37 800 MG Levothyroxine Sodium (Synthroid Tab) 50 mcg DAILYBB PO 11/16/16 06:00 12/16/16 05:59 11/18/16 05:53 50 MCG Enteral Nutritional Formula (Boost) 1 can DAILY PO 11/16/16 09:00 12/16/16 08:59 11/17/16 08:48 1 CAN Valsartan (Diovan Tab) 320 mg HS PO 11/15/16 21:00 12/15/16 20:59 11/17/16 20:58 320 MG Vitamin B Complex/ Vit C/Folic Acid (Nephrocaps) 1 cap QAM PO 11/16/16 09:00 12/16/16 08:59 11/17/16 08:50 1 CAP Brimonidine Tartrate (Alphagan-P 0.15% Oph Soln) 1 drops BID OP 11/15/16 21:00 12/15/16 20:59 11/17/16 20:57 1 DROPS Morphine Sulfate (MoRPHine SULFATE INJ) 2 mg Q4HWA PRN IV 11/15/16 10:30 11/29/16 10:29 Acetaminophen/ Hydrocodone Bitart ([place] 5/325 Tab) 1 TABLET FOR PAIN RATING... Q4H PRN PO 11/15/16 10:30 11/29/16 10:29 11/18/16 05:54 2 TAB Acetaminophen (Tylenol Tab) 1,000 mg Q8H PO 11/15/16 14:00 12/15/16 13:59 11/17/16 13:58 1,000 MG Magnesium Hydroxide (Milk Of Magnesia Susp) 30 ml Q6H PRN PO 11/15/16 10:30 12/15/16 10:29 11/17/16 14:05 30 ML Bisacodyl (Dulcolax Supp) 10 mg DAILY PRN [place] 11/15/16 10:30 12/15/16 10:29 Senna (Senokot Tab) 17.2 mg HS PO 11/15/16 21:00 12/15/16 20:59 11/17/16 21:02 17.2 MG Docusate Sodium (coLACE CAP) 100 mg BID PO 11/15/16 21:00 12/15/16 20:59 11/17/16 20:59 100 MG Al Hydrox/Mg Hydrox/Simethicone (Maalox Max Susp) 15 ml Q4H PRN PO 11/15/16 10:30 12/15/16 10:29 Ondansetron HCl (Zofran Inj) 4 mg Q6H PRN IV 11/15/16 10:30 12/15/16 10:29 Ferrous Gluconate (Ferrous Gluconate Tab) 324 mg TIDM PO 11/15/16 12:30 12/15/16 12:29 11/17/16 17:53 324 MG Pantoprazole Sodium (Protonix Tab) 40 mg QAM PO 11/16/16 09:00 12/16/16 08:59 11/17/16 08:52 40 MG Tramadol HCl (Ultram Tab) 1 tablet for pain rating... Q4H PRN PO 11/15/16 10:30 12/15/16 10:29 Aspirin (Ecotrin Tab) 81 mg BID PO 11/15/16 21:00 12/15/16 20:59 11/17/16 20:58 81 MG Heparin Sodium (Porcine) 2000 unit 2,000 unit TODAY@0600 IV 11/18/16 06:00 11/18/16 18:00 Epoetin Judah/ Syringe (Procrit Inj/ Syringe) 0.35 ml @ 1 mls/min TODAY@0600 IV. 11/18/16 06:00 11/18/16 18:00 (Melissa Hale PA-C) Objective Vital Signs Date Time Temp Pulse Resp B/P Pulse Ox O2 Delivery O2 Flow Rate FiO2 11/18/16 05:45 36.6 57 16 153/65 94 Room Air 11/17/16 23:35 36.4 56 16 159/68 95 Room Air 11/17/16 20:55 159/72 58 11/17/16 20:20 Room Air 11/17/16 15:24 36.4 55 17 168/79 95 Room Air 11/17/16 08:46 65 133/88 (Melissa Hale PA-C) Physical Exam General Appearance: WD/WN, no apparent distress Eyes: sclerae normal ENT: hearing grossly normal Neck: supple, no JVD, trachea midline Respiratory/Chest: lungs clear, normal breath sounds, no respiratory distress, no accessory muscle use Cardiovascular: regular rate, rhythm, no gallop, + systolic murmur Abdomen: normal bowel sounds, non tender, soft Extremities: no pedal edema Neurologic/Psychiatric: alert, oriented x 3 Skin: warm/dry (Melissa Hale PA-C) Laboratory Results Last 24 Hours Test 11/18/16 04:44 (Melissa Hale PA-C) Assessment and Plan Patient is a 65 y/o female, with PMHx of HTN, hypothyroidism, and ESRD on dialysis M,W,F, S/P L TKA by Dr. Riggs on 11/15. S/P L TKA on 11/15 - Dr. Riggs - Surgical management, pain management, PT/OT, and DVT prophylaxis as per primary team - DVT prophylaxis - ASA 81 mg BID, WALE/SCDs HTN: - Hydralazine 50 mg daily, Labetalol 800 mg BID, Diovan 320 mg HS - with hold parameters as necessary -- Continues to have bradycardia with Labetalol held - consideration for lowered dose with increase in Hydralazine - discussed with nephrology - Gave recommendations for rehab facility for the following changes - will implement if patient is not D/C'd today -- Reduce Labetalol to 200 mg BID and change Hydralazine to 50 mg TID Hypothyroidism: - Synthroid 50 mcg daily ESRD on HD (M,W,F): [employer], Dr. Menon - Nephrology following - recommendations reviewed - at dialysis today Code Status: FULL RESUSCITATION Disposition: Discharge as per primary team Thank you for this consultation. We will continue to follow throughout hospital stay. (Melissa Hale, PAMelC)
[2016-11-18] MEDS: FERROUS GLUCONATE 324 MG TAB PO SCH ×3 (08:30→18:43)
[2016-11-18] MEDS: BRIMONIDINE TARTRATE-P 0.15% 5 ML BTL OP SCH ×2 (09:00→20:52)
--- NOTE | 2016-11-18 10:05 | Nephrology Progress Note ---
Nephrology Progress Note Date of Service November 18, 2016. Chief Complaint Provide inpatient HD for this patient with ESRD admitted for elective L TKA Subjective Ms. Harmon was seen & examined during HD morning. She is dialyzing via her R IJ THC. Catheter is functioning well A --> A at Qb350 cc/min. Ms. Harmon currently denies fever, angina or dyspnea. She is tolerating HD well and voices no new medical concerns. She has been able to ambulate short distances. She reports that her right knee swelling has improved. She hopes to transfer to [facility] soon. Review of Systems Constitutional: No fever Cardiovascular: No chest pain Respiratory: No dyspnea at rest Abdomen: No nausea, No pain, No vomiting Extremities: No leg edema A complete review of systems was performed. Pertinent positives are noted above. All other systems are negative. Vital Signs Last 8 Hrs Date Time Temp Pulse Resp B/P Pulse Ox O2 Delivery O2 Flow Rate FiO2 11/18/16 09:00 61 140/81 11/18/16 08:45 57 140/75 11/18/16 08:30 58 139/81 11/18/16 08:15 58 134/65 11/18/16 08:00 61 145/75 11/18/16 07:45 63 161/81 11/18/16 07:30 56 138/62 11/18/16 07:15 58 141/59 11/18/16 07:00 55 135/65 11/18/16 06:45 36.4 55 144/62 11/18/16 05:45 36.6 57 16 153/65 94 Room Air I & O 24-Hour Column 11/18/16 08:00 Intake Total 925 ml Balance 925 ml Last Recorded Weight Weight (Kilograms): 66.000 Physical Exam General Appearance: no apparent distress Head: atraumatic Eyes: PERRL, EOMI Neck: no adenopathy, + pertinent finding (R IJ THC with clean dry dressing in place) Respiratory/Chest: lungs clear Cardiovascular: regular rate, rhythm Abdomen/GI: normal bowel sounds, non tender, soft Extremities/Musculoskelatal: no calf tenderness, no pedal edema Neurologic/Psych: alert, oriented x 3 Family History Diabetes mellitus SISTER FH: Parkinson's disease FATHER FH: hyperlipidemia MOTHER Kidney disease (Grandmother's brother) Negative for CKD / ESRD Social History Drug Use: none Marital Status: 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 Laboratory Results Past 24 Hours Test 11/18/16 04:44 Allergies Coded Allergies: Cephalosporins (Verified Allergy, Unknown, UNKNOWN, 11/15/16) Lisinopril (Verified Allergy, Unknown, FACE SWELLING, 11/15/16) Penicillins (Verified Allergy, Unknown, ANAPHYLAXIS, 11/15/16) Oxycodone (Verified Adverse Reaction, Intermediate, N/V, 11/15/16) Statins (Verified Adverse Reaction, Intermediate, PAIN-MUSCLE ACHES, ) Allopurinol (Verified Adverse Reaction, Unknown, gout, 11/15/16) Amlodipine (Verified Adverse Reaction, Unknown, A FIB, LEGS SWELLING, ) Niacin (Verified Adverse Reaction, Unknown, flushing, 11/15/16) Medications Current Inpatient Medications Medications (Trade) Dose Ordered Sig/Tien Route Start Time Stop Time Status Last Admin Dose Admin Calcium Acetate (Phoslo Cap) 2,668 mg TID PO 11/15/16 14:00 12/15/16 13:59 11/17/16 21:00 1,334 MG Cholecalciferol (Vitamin D Tab) 1,000 inter.unit QAM PO 11/16/16 09:00 12/16/16 08:59 11/17/16 08:51 1,000 INTER.UNIT Hydralazine HCl (Apresoline Tab) 50 mg QPM PO 11/15/16 21:00 12/15/16 20:59 11/17/16 21:01 50 MG Labetalol HCl (Normodyne Tab) 800 mg BID PO 11/15/16 21:00 12/15/16 20:59 11/15/16 20:37 800 MG Levothyroxine Sodium (Synthroid Tab) 50 mcg DAILYBB PO 11/16/16 06:00 12/16/16 05:59 11/18/16 05:53 50 MCG Enteral Nutritional Formula (Boost) 1 can DAILY PO 11/16/16 09:00 12/16/16 08:59 11/17/16 08:48 1 CAN Valsartan (Diovan Tab) 320 mg HS PO 11/15/16 21:00 12/15/16 20:59 11/17/16 20:58 320 MG Vitamin B Complex/ Vit C/Folic Acid (Nephrocaps) 1 cap QAM PO 11/16/16 09:00 12/16/16 08:59 11/17/16 08:50 1 CAP Brimonidine Tartrate (Alphagan-P 0.15% Oph Soln) 1 drops BID OP 11/15/16 21:00 12/15/16 20:59 11/17/16 20:57 1 DROPS Morphine Sulfate (MoRPHine SULFATE INJ) 2 mg Q4HWA PRN IV 11/15/16 10:30 11/29/16 10:29 Acetaminophen/ Hydrocodone Bitart ([place] 5/325 Tab) 1 TABLET FOR PAIN RATING... Q4H PRN PO 11/15/16 10:30 11/29/16 10:29 11/18/16 05:54 2 TAB Acetaminophen (Tylenol Tab) 1,000 mg Q8H PO 11/15/16 14:00 12/15/16 13:59 11/17/16 13:58 1,000 MG Magnesium Hydroxide (Milk Of Magnesia Susp) 30 ml Q6H PRN PO 11/15/16 10:30 12/15/16 10:29 11/17/16 14:05 30 ML Bisacodyl (Dulcolax Supp) 10 mg DAILY PRN [place] 11/15/16 10:30 12/15/16 10:29 Senna (Senokot Tab) 17.2 mg HS PO 11/15/16 21:00 12/15/16 20:59 11/17/16 21:02 17.2 MG Docusate Sodium (coLACE CAP) 100 mg BID PO 11/15/16 21:00 12/15/16 20:59 11/17/16 20:59 100 MG Al Hydrox/Mg Hydrox/Simethicone (Maalox Max Susp) 15 ml Q4H PRN PO 11/15/16 10:30 12/15/16 10:29 Ondansetron HCl (Zofran Inj) 4 mg Q6H PRN IV 11/15/16 10:30 12/15/16 10:29 Ferrous Gluconate (Ferrous Gluconate Tab) 324 mg TIDM PO 11/15/16 12:30 12/15/16 12:29 11/17/16 17:53 324 MG Pantoprazole Sodium (Protonix Tab) 40 mg QAM PO 11/16/16 09:00 12/16/16 08:59 11/17/16 08:52 40 MG Tramadol HCl (Ultram Tab) 1 tablet for pain rating... Q4H PRN PO 11/15/16 10:30 12/15/16 10:29 Aspirin (Ecotrin Tab) 81 mg BID PO 11/15/16 21:00 12/15/16 20:59 11/17/16 20:58 81 MG Heparin Sodium (Porcine) 2000 unit 2,000 unit TODAY@0600 IV 11/18/16 06:00 11/18/16 18:00 Epoetin Judah/ Syringe (Procrit Inj/ Syringe) 0.35 ml @ 1 mls/min TODAY@0600 IV. 11/18/16 06:00 11/18/16 18:00 Impression (1) End-stage renal disease on hemodialysis (2) S/P TKR (total knee replacement) (3) Pulmonary arterial hypertension (4) Hypertension (5) Hypothyroidism (6) Anemia (7) Cirrhosis (8) Ascites (9) Periumbilical hernia Patient admitted for elective L TKA. 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 Attempts to place AVF have been unsuccessful. Patient has a left upper arm AVG which is functional but frequently infiltrates and she still uses an IJ THC as her main vascular access. PMH - ESRD, HTN, hypothyroidism, cirrhosis, pulmonary HTN w/ cor pulmonale requiring periodic paracentesis, periumbilical hernia Recommendations END STAGE RENAL DISEASE: -- Patient seen & examined during HD this am. IJ THC is functioning A-->A at Qb 300 cc/min. -- Protect L upper arm AVG. Patient wishes to rest AVG due to recent infiltration -- HD diet -- Daily Nephrovite HYPERTENSION: -- Blood pressure is acceptable at this time. Continue current antihypertensive regimen. No change at present ANEMIA: -- Hgb is within target range 10 - 11. No acute indication for BALWINDER at this time -- Patient receives Mircera 50 mcg IV every 2 weeks as outpatient -- Recommend stopping oral iron due to risk of constipation. Can provide IV iron w/ HD if needed OTHER: -- Orders written today for HD at [facility] and given to staff development educator in preparation for transfer to [facility]
--- NOTE | 2016-11-18 10:55 | Consultant Recommendations ---
Project Hire Recommendations Date of Service November 18, 2016. Project Hire Recommendations Per Dr Robles: Patient admitted for elective L TKA. 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 Attempts to place AVF have been unsuccessful. Patient has a left upper arm AVG which is functional but frequently infiltrates and she still uses an IJ THC as her main vascular access. PMH - ESRD, HTN, hypothyroidism, cirrhosis, pulmonary HTN w/ cor pulmonale requiring periodic paracentesis, periumbilical hernia Recommendations END STAGE RENAL DISEASE: -- Protect L upper arm AVG -- HD diet -- Daily Nephrovite HYPERTENSION: -- Blood pressure is acceptable at this time. Continue current antihypertensive regimen. No change at present ANEMIA: -- Hgb is within target range 10 - 11. No acute indication for BALWINDER at this time -- Patient receives Mircera 50 mcg IV every 2 weeks as outpatient -- Recommend stopping oral iron due to risk of constipation. Can provide IV iron w/ HD if needed PER [facility]: Melissa Hale PA-C - Given patient is bradycardic - averaging in the 50s - even with Labetalol held during admission we give the recommendations as follows: -- Labetalol could be reduced to 200 mg BID with Hydralazine increased to 50 mg TID to maintain proper blood pressure control - Did discuss these options with nephrology as we would not want to compromise blood pressure in the setting of dialysis. - Would benefit from continued BP monitoring and adjustments made. - If you have any questions you can contact the hospitalists at [phone] and ask for Melissa Hale PA-C
[2016-11-18] MEDS: DOCUSATE SODIUM 100 MG CAP PO SCH ×2 (11:45→20:50)
[2016-11-18] MEDS: LABETALOL HCL 200 MG TAB PO SCH ×2 (11:47→20:51)
[2016-11-18] MEDS: NEPHROCAPS PO SCH (11:50)
[2016-11-18] MEDS: BOOST VANILLA PO SCH ×2 (11:50)
[2016-11-18] MEDS: PANTOprazole SOD 40 MG TAB PO SCH (11:51)
[2016-11-18] MEDS: CHOLECALCIFEROL 1000 INTER.UNIT TAB PO SCH (11:52)
[2016-11-18] MEDS: ASPIRIN 81 MG ECTAB PO SCH ×2 (11:52→20:50)
[2016-11-18] MEDS: CALCIUM ACETATE 667MG GELCAP PO SCH ×3 (11:54→20:54)
[2016-11-18 12:49] LABS: HEMATOCRIT 33.4 % (37-47); MEAN CELL VOLUME 97.7 fL (80-100); MEAN CORPUSCULAR HEMOGLOBIN 30.1 pg (25-34); MEAN CORPUSCULAR HGB CONC 30.8 g/dl (32-36); MEAN PLATELET VOLUME 8.8 fL (7.4-10.4); PLATELET COUNT 189 K/uL (130-400); RED BLOOD COUNT 3.42 M/uL (4.2-5.4); WHITE BLOOD COUNT 7.27 K/uL (4.8-10.8)
[2016-11-18 13:55] LABS: CALCIUM 8.4 mg/dl (8.5-10.1); CREATININE 2.8 mg/dl (0.60-1.20); POTASSIUM 3.5 mmol/L (3.5-5.1)
[2016-11-18] MEDS ORDERED: LBT200 PO (16:25)
[2016-11-18] MEDS ORDERED: APR50 PO (16:25)
[2016-11-18] MEDS: SENNA 8.6 MG TAB PO SCH (20:51)
[2016-11-18] MEDS: VALSARTAN 80 MG TAB PO SCH (20:52)
[2016-11-18] MEDS: MAGNESIUM HYDROXIDE SUSP 30 ML UDC PO PRN (23:01)
[2016-11-19 00:10] VITALS: BP 147/66; PULSE 66; TEMP 36.3; O2SAT 96
[2016-11-19] MEDS: HYDROCODONE/ACETAMOPHEN 5/325MG TAB PO PRN ×3 (02:07→13:13)
[2016-11-19] MEDS: ACETAMINOPHEN 500 MG TAB PO SCH (05:27)
[2016-11-19] MEDS: LEVOTHYROXINE 50 MCG TAB PO SCH (05:28)
--- NOTE | 2016-11-19 06:40 | Orthopedic Progress Note ---
Orthopedic Progress Note Date of Service November 19, 2016. Subjective Post OP Day: 4 Reports: feeling well, pain controlled w PO medications, Denies: SOB, calf pain , chest pain, complaints, light headedness, nausea / vomiting Objective calves soft nontender, N/V intact, capillary refill less than 2 sec., incision C /D/I, A&O x3, toes mobile Date Time Temp Pulse Resp B/P Pulse Ox O2 Delivery O2 Flow Rate FiO2 11/19/16 00:10 36.3 66 16 147/66 96 Room Air 11/18/16 20:49 55 136/78 11/18/16 20:42 Room Air 11/18/16 16:39 137/73 11/18/16 15:30 Room Air 11/18/16 15:05 36.3 76 18 105/61 99 Room Air 11/18/16 11:30 36.7 62 18 167/79 95 Room Air 11/18/16 11:30 Room Air 11/18/16 10:50 36.6 65 145/71 11/18/16 10:40 55 129/59 11/18/16 10:30 61 138/61 11/18/16 10:15 71 157/52 11/18/16 10:00 59 136/62 11/18/16 09:45 62 152/66 11/18/16 09:30 68 130/56 11/18/16 09:15 62 136/75 11/18/16 09:00 61 140/81 11/18/16 08:45 57 140/75 11/18/16 08:30 58 139/81 11/18/16 08:15 58 134/65 11/18/16 08:00 61 145/75 11/18/16 07:45 63 161/81 11/18/16 07:30 56 138/62 11/18/16 07:15 58 141/59 11/18/16 07:00 55 135/65 11/18/16 06:45 36.4 55 144/62 Laboratory Results 24 Hours: Test 11/18/16 12:16 Hematocrit 33.4 % Hemoglobin 10.3 g/dL Assessment & Plan Assessment: POD #3 s/p Left TKA -pt/ot -dvt proph with syed/scd/asa -plan for transfer to today HTN: Hydralazine 50 mg daily, Labetalol 800 mg BID, Diovan 320 mg HS Hypothyroidism has resumed her Synthroid ESRD, on dialysis M,W,F: nephology on board, tolerated dialysis well yesterday Discharge Planning Discharge Planning: rehab hospital DVT Prophylaxis: TEDs, SCDs, ASA Therapy: Physical Therapy
[2016-11-19 07:25] VITALS: BP 150/70; PULSE 59; TEMP 36.7; O2SAT 97
[2016-11-19] MEDS: FERROUS GLUCONATE 324 MG TAB PO SCH ×2 (08:30→12:30)
[2016-11-19 08:40] VITALS: PULSE 64
[2016-11-19] MEDS: PANTOprazole SOD 40 MG TAB PO SCH (08:49)
[2016-11-19] MEDS: LABETALOL HCL 200 MG TAB PO SCH (08:50)
[2016-11-19] MEDS: DOCUSATE SODIUM 100 MG CAP PO SCH (08:51)
[2016-11-19] MEDS: ASPIRIN 81 MG ECTAB PO SCH (08:51)
[2016-11-19] MEDS: NEPHROCAPS PO SCH (08:51)
[2016-11-19] MEDS: CHOLECALCIFEROL 1000 INTER.UNIT TAB PO SCH (08:51)
[2016-11-19] MEDS: BRIMONIDINE TARTRATE-P 0.15% 5 ML BTL OP SCH (08:51)
[2016-11-19] MEDS: CALCIUM ACETATE 667MG GELCAP PO SCH (08:52)
[2016-11-19] MEDS: BOOST VANILLA PO SCH ×2 (09:02)
[2016-11-19 10:49] VITALS: BP 150/70; PULSE 59; TEMP 36.7; O2SAT 97
--- NOTE | 2016-11-19 12:34 | Nephrology Progress Note ---
Nephrology Progress Note Date of Service November 19, 2016. Chief Complaint Follow-up for end-stage renal disease on hemodialysis. Peañ Marte was seen and examined in her room this morning. She is otherwise feeling well. She is just back from physical therapy did well. Denies shortness of breath or chest pain. Blood pressure has been stable. Electrolyte acceptable. Volume status stable. Had dialysis yesterday. Review of Systems A complete review of systems was performed. Pertinent positives are noted above. All other systems are negative. Vital Signs Last 8 Hrs Date Time Temp Pulse Resp B/P Pulse Ox O2 Delivery O2 Flow Rate FiO2 11/19/16 08:02 Room Air 11/19/16 07:25 36.7 59 20 150/70 97 Room Air I & O 24-Hour Column 11/19/16 08:00 Intake Total 300 ml Output Total 2000 ml Balance -1700 ml Last Recorded Weight Weight (Kilograms): 66.000 Physical Exam GENERAL: Middle-aged female , AAA x 3, pleasant, healthy-appearing, not in any distress. NECK: Supple, no JVD. RESPIRATORY: Normal breathing efforts, no accessory muscle use, clear to auscultation bilaterally, no wheezes or rales. CARDIOVASCULAR: S1, S2 normal, rate rhythm regular. EXTREMITY: No lower extremity edema NEURO: speech fluent. PSYCHIATRY: Normal mood and judgment Family History Diabetes mellitus SISTER FH: Parkinson's disease FATHER FH: hyperlipidemia MOTHER Kidney disease (Grandmother's brother) Negative for CKD / ESRD Social History Drug Use: none Marital Status: 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 Laboratory Results Past 24 Hours 11/18/16 12:16 11/18/16 12:16 Test 11/18/16 12:16 Red Blood Count 3.42 M/uL (4.2-5.4) Mean Corpuscular Volume 97.7 fL (80-100) Mean Corpuscular Hemoglobin 30.1 pg (25-34) Mean Corpuscular Hemoglobin Concent 30.8 g/dl (32-36) RDW Standard Deviation 59.1 fL (36.4-46.3) RDW Coefficient of Variation 17.0 % (11.5-14.5) Mean Platelet Volume 8.8 fL (7.4-10.4) Anion Gap 8.0 mmol/L (3-11) Est Creatinine Clear Calc Drug Dose 17.4 ml/min Estimated GFR () 19.4 Estimated GFR (Non- 16.8 BUN/Creatinine Ratio 6.0 (10-20) Calcium Level 8.4 mg/dl (8.5-10.1) Allergies Coded Allergies: Cephalosporins (Verified Allergy, Unknown, UNKNOWN, 11/15/16) Lisinopril (Verified Allergy, Unknown, FACE SWELLING, 11/15/16) Penicillins (Verified Allergy, Unknown, ANAPHYLAXIS, 11/15/16) Oxycodone (Verified Adverse Reaction, Intermediate, N/V, 11/15/16) Statins (Verified Adverse Reaction, Intermediate, PAIN-MUSCLE ACHES, ) Allopurinol (Verified Adverse Reaction, Unknown, gout, 11/15/16) Amlodipine (Verified Adverse Reaction, Unknown, A FIB, LEGS SWELLING, ) Niacin (Verified Adverse Reaction, Unknown, flushing, 11/15/16) Medications Current Inpatient Medications Medications (Trade) Dose Ordered Sig/Tien Route Start Time Stop Time Status Last Admin Dose Admin Calcium Acetate (Phoslo Cap) 2,668 mg TID PO 11/15/16 14:00 12/15/16 13:59 11/19/16 08:52 2,668 MG Cholecalciferol (Vitamin D Tab) 1,000 inter.unit QAM PO 11/16/16 09:00 12/16/16 08:59 11/19/16 08:51 1,000 INTER.UNIT Levothyroxine Sodium (Synthroid Tab) 50 mcg DAILYBB PO 11/16/16 06:00 12/16/16 05:59 11/19/16 05:28 50 MCG Enteral Nutritional Formula (Boost) 1 can DAILY PO 11/16/16 09:00 12/16/16 08:59 11/19/16 09:02 1 CAN Valsartan (Diovan Tab) 320 mg HS PO 11/15/16 21:00 12/15/16 20:59 11/18/16 20:52 320 MG Vitamin B Complex/ Vit C/Folic Acid (Nephrocaps) 1 cap QAM PO 11/16/16 09:00 12/16/16 08:59 11/19/16 08:51 1 CAP Brimonidine Tartrate (Alphagan-P 0.15% Oph Soln) 1 drops BID OP 11/15/16 21:00 12/15/16 20:59 11/19/16 08:51 1 DROPS Morphine Sulfate (MoRPHine SULFATE INJ) 2 mg Q4HWA PRN IV 11/15/16 10:30 11/29/16 10:29 Acetaminophen/ Hydrocodone Bitart ([place] 5/325 Tab) 1 TABLET FOR PAIN RATING... Q4H PRN PO 11/15/16 10:30 11/29/16 10:29 11/19/16 08:07 2 TAB Acetaminophen (Tylenol Tab) 1,000 mg Q8H PO 11/15/16 14:00 12/15/16 13:59 11/17/16 13:58 1,000 MG Magnesium Hydroxide (Milk Of Magnesia Susp) 30 ml Q6H PRN PO 11/15/16 10:30 12/15/16 10:29 11/18/16 23:01 30 ML Bisacodyl (Dulcolax Supp) 10 mg DAILY PRN ND 11/15/16 10:30 12/15/16 10:29 11/18/16 20:50 10 MG Senna (Senokot Tab) 17.2 mg HS PO 11/15/16 21:00 12/15/16 20:59 11/18/16 20:51 17.2 MG Docusate Sodium (coLACE CAP) 100 mg BID PO 11/15/16 21:00 12/15/16 20:59 11/19/16 08:51 100 MG Al Hydrox/Mg Hydrox/Simethicone (Maalox Max Susp) 15 ml Q4H PRN PO 11/15/16 10:30 12/15/16 10:29 Ondansetron HCl (Zofran Inj) 4 mg Q6H PRN IV 11/15/16 10:30 12/15/16 10:29 Ferrous Gluconate (Ferrous Gluconate Tab) 324 mg TIDM PO 11/15/16 12:30 12/15/16 12:29 11/18/16 18:43 324 MG Pantoprazole Sodium (Protonix Tab) 40 mg QAM PO 11/16/16 09:00 12/16/16 08:59 11/19/16 08:49 40 MG Tramadol HCl (Ultram Tab) 1 tablet for pain rating... Q4H PRN PO 11/15/16 10:30 12/15/16 10:29 Aspirin (Ecotrin Tab) 81 mg BID PO 11/15/16 21:00 12/15/16 20:59 11/19/16 08:51 81 MG Labetalol HCl (Normodyne Tab) 200 mg BID PO 11/18/16 21:00 12/18/16 20:59 11/19/16 08:50 200 MG Hydralazine HCl (Apresoline Tab) 50 mg TID PO 11/18/16 16:01 12/18/16 16:00 11/19/16 08:52 50 MG Impression (1) End-stage renal disease on hemodialysis (2) S/P TKR (total knee replacement) (3) Pulmonary arterial hypertension (4) Hypertension (5) Hypothyroidism (6) Anemia (7) Cirrhosis (8) Ascites (9) Periumbilical hernia Patient admitted for elective L TKA. 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 Attempts to place AVF have been unsuccessful. Patient has a left upper arm AVG which is functional but frequently infiltrates and she still uses an IJ THC as her main vascular access. PMH - ESRD, HTN, hypothyroidism, cirrhosis, pulmonary HTN w/ cor pulmonale requiring periodic paracentesis, periumbilical hernia Recommendations END STAGE RENAL DISEASE: -- had dialysis yesterday, currently electrolyte, volume status and blood pressure acceptable. IJ THC is functioning well. -- Protect L upper arm AVG. Patient wishes to rest AVG due to recent infiltration -- HD diet -- Daily Nephrovite --continue on phosphate binders with meal HYPERTENSION: -- Blood pressure is acceptable at this time. Continue current antihypertensive regimen. No change at present ANEMIA: -- Hgb is within target range 10 - 11. No acute indication for BALWINDER at this time -- Patient receives Mircera 50 mcg IV every 2 weeks as outpatient -- will continue on BALWINDER as needed during dialysis OTHER: -- Orders written for HD at [facility] and given to staff therapist in preparation for transfer to [facility]
--- NOTE | 2016-11-21 18:24 | DISCHARGE SUMMARY ---
DISCHARGE DIAGNOSIS: Degenerative joint disease, left knee. SECONDARY DIAGNOSES: End-stage renal disease on dialysis Monday, Monday, Monday; hypertension; hypothyroidism; anemia; cirrhosis; ascites and periumbilical hernia. CONSULTATIONS: Keesha Hurley PA-C/Henrry Overton MD; also You Robles MD. COMPLICATIONS: None. PROCEDURES: Left total knee arthroplasty by Dr. Riggs on 11/15/2016. BRIEF HISTORY OF PRESENT ILLNESS: As dictated in the history and physical. HOSPITAL SUMMARY: The patient was admitted on the above date and had the above-noted surgery performed which she tolerated well. Postoperatively, medicine service from [facility] was consulted for medical management and Dr. Robles was consulted for nephrology consultation to manage patient's hemodialysis during the time she was here at the hospital. On her first postoperative day, she was feeling well and pain was controlled. Calves were nontender, neurovascularly intact. Dressings were clean, dry and intact. Toes were mobile. Vital signs were stable and she was afebrile. Hemoglobin was 10.1 and she was started on physical therapy protocol and continued on DVT prophylaxis and pain management. Plans were for her to go through dialysis on Monday, Monday and Fridays. Dr. Robles continued to follow control that and she continued to remain stable. She continued to progress well with her physical therapy and by November 18, she continued to remain stable medically and orthopedically. The patient was progressing with physical therapy and was felt she would need a rehab stay post-discharge of which [facility] was chosen. Social service was consulted to arrange for transfer. The rest of her stay was essentially uneventful and by November 19, she continued to remain stable. Medicine service and nephrology service both felt the patient was stable for transfer to [facility] and she was transferred to [facility] on 11/19/2016 for further care. For further review, please see chart. LABORATORY AND X-RAY DATA: As per chart. DISCHARGE INSTRUCTIONS: The patient was discharged to [facility] on 11/19/2016. DIET: Renal diet. ACTIVITY: Follow TK instruction sheets and special care instructions as noted. Follow up with Dr. Riggs in 2 weeks. The patient to call for appointment if one has not been made for you. DISCHARGE MEDICATIONS: Aspirin 81 mg p.o. b.i.d., hydralazine 50 mg p.o. t.i.d., [place] 5/325 1-2 tabs p.o. q. 4 hours p.r.n., labetalol 200 mg p.o. b.i.d., tramadol 50-100 mg p.o. q. 4 hours p.r.n. Resume Alphagan 0.15% ophthalmologic drops 1 drop OPB b.i.d., PhosLo 667 four tabs p.o. t.i.d., vitamin D3 one tab p.o. q.a.m., levothyroxine 50 mcg p.o. q.a.m., Boost 1 can p.o. daily, Zofran 8 mg p.o. p.r.n., senna 1 tab p.o. b.i.d. p.r.n., valsartan 320 mg p.o. at bedtime, Nephrocaps 1 cap p.o. q.a.m. After 30 days, resume your once daily aspirin tablet, hydralazine changed to t.i.d. so stop taking once daily tablet and stop taking labetalol 800 mg tablet, which was switched to 200 mg b.i.d. and stop taking sulfamethoxazole/trimethoprim.
== END 2016-11-19 13:34 | DRG 469 ==
LOC: ENRESERVDT → ENRESERVTM → C.ACU 06:01 → C.3E 07:00
PROVIDERS: ADMIT Orthopaedic Surgery; ATTEND Orthopaedic Surgery
PROC: 0SRD0J9 Replacement of Left Knee Joint with Synthetic Substitute, Cemented, Open Approach (ICD-10-PCS; principal; 2016-11-15 08:00)
DX: M17.9 Osteoarthritis of knee, unspecified (principal); N18.6 End stage renal disease; I12.0 Hypertensive chronic kidney disease with stage 5 chronic kidney disease or end stage renal disease; Z94.0 Kidney transplant status; E03.9 Hypothyroidism, unspecified; K74.60 Unspecified cirrhosis of liver; Z99.2 Dependence on renal dialysis; Z90.49 Acquired absence of other specified parts of digestive tract; Z79.899 Other long term (current) drug therapy

== ENCOUNTER 2016-11-30 22:17 | Emergency (ER) | payer OTHER, MEDICARE ==
[~2016-11-30] VITALS: Ht 157.5 cm; Wt 58.5 kg
[~2016-11-30 22:17] MED LIST changes: -ACETAMINOPHEN 500 MG TAB PO SCH; +APR50 PO; +ASPEC81 PO; -ASPI81TA28 PO; -CeleBREX 200 MG CAP PO SCH; -DEXAMETHASONE 4 MG TAB PO SCH; -FAMOTIDINE 20 MG TAB PO SCH; -GABAPENTIN 300 MG CAP PO SCH; -HYDR-4717 PO; +HYDR-5688 PO; -LABE200T24 PO; -LACTATED RINGER'S 1000ML IV SCH; +LBT200 PO; -METOCLOPRAMIDE HCL 10 MG TAB PO SCH; -NSS 1000ML IV SCH; -ROPIVACAINE 5MG/ML 30 ML 150 MG, BUPIVACAINE/EPINEPHR 0.5% MPF 30 ML, KETOROLAC TROMETH... INFIL SCH; -SODIUM CHLORIDE 0.9% IV SCH; -SULF-183 PO; +ULT50X PO; -VANCOMYCIN INJ 900 MG in SODIUM CHLORIDE 0.9% 250ML 250 ML IV SCH; -VANCOMYCIN IV SCH
[2016-11-30 22:20] VITALS: TEMP 36.7; Ht 157.5 cm; Wt 58.5 kg
[2016-11-30] MEDS ORDERED: BRIM0.1S OPB (23:16)
[2016-11-30] MEDS ORDERED: LABE1TAB28 PO (23:16)
[2016-11-30] MEDS ORDERED: PROMETHAZINE HCL INJ 6.25 MG in SODIUM CHLORIDE 0.9% 50ML 50 ML IV STA (23:16)
[2016-11-30] MEDS ORDERED: ASPI81TA28 PO (23:16)
[2016-11-30] MEDS ORDERED: B-CO1CAP17 PO (23:16)
--- NOTE | 2016-11-30 23:31 | EMERGENCY ROOM VISIT NOTE ---
History Report prepared by Shoaib: Lam Parr Under the Supervision of: Dr. Edilson Lozoya M.D. First contact with patient: 23:11 Chief Complaint: ABDOMINAL PAIN Stated Complaint: STOMACH PAIN AND NAUSEA Nursing Triage Summary: Pt reports she is having abdominal pain, nausea and vomiting. No BM in 4-5 days. D/C from [facility] Monday after knee replacement 11/15/16. Has been using Forsyth for pain management. Tried taking Sennakot, and prune juice for constipation without relief. Nausea started yesterday, some vomiting today. Hx of dialysis pt. Missed dialysis today. Large hernia to back and stomach. 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 Recently done. History of Present Illness The patient is a 65 year old female who presents to the Emergency Room with complaints of constant abdominal pain and constipation for the past two days. The patient states that she has been taking different laxatives and drinking prune juice, however she has only been able to have very small bowel movements. The patient states that she is not bloated, though she has a history of ascites. The patient denies any fever, shortness of breath, and vomiting, though she is nauseous and dry heaving. The patient states that she has a history of a hernia, hysterectomy, appendectomy, , kidney transplant that no longer functions, two nephrectomies, and she is now on dialysis. She states that she was supposed to go to dialysis today, however she felt too sick to go. The patient states that she had a knee replacement on 11/15, and she was at rehab, and she was put on [place]. Source of History: patient Onset: two days ago Position: abdomen, other (global) Quality: other (constipation) Timing: constant Associated Symptoms: + nausea, No SOB, No fevers, No vomiting Review of Systems See HPI for pertinent positives & negatives. A total of 10 systems reviewed and were otherwise negative. Past Medical & Surgical Medical Problems: (1) Anemia (2) Ascites (3) Cirrhosis (4) End-stage renal disease on hemodialysis (5) Hypertension (6) Hypothyroidism (7) Left knee DJD (8) Periumbilical hernia (9) Pulmonary arterial hypertension (10) Secondary hyperparathyroidism of renal origin Surgical Problems: (1) S/P TKR (total knee replacement) Family History Diabetes mellitus SISTER FH: Parkinson's disease FATHER FH: hyperlipidemia MOTHER Kidney disease (Grandmother's brother) Social History Smoking Status: Never Smoker Drug Use: none Marital Status: Housing Status: lives alone Occupation Status: retired Current/Historical Medications Scheduled Aspirin (Aspirin Ec), 81 MG PO DAILY Brimonidine Tartrate (Alphagan P Oph), 1 DROP OPB BID Calcium Acetate (Phoslo 667 Mg), 4 TAB PO TID Cholecalciferol (Vitamin D3), 1 TAB PO QAM Hydralazine HCl (Hydralazine HCl), 50 MG PO TID Labetalol (Normodyne), 400 MG PO BID Levothyroxine Sodium (Levothyroxine Sodium), 1 TAB PO QAM Nutritional Supplements (Boost), 1 CAN PO DAILY Valsartan (Diovan), 320 MG PO HS Vitamin B Cmplx/Vitc/Folic Ac (Nephrocaps), 1 CAP PO DAILY Scheduled PRN Hydrocodone/Acetaminophen 5MG/325MG (Forsyth 5MG/325MG), 1-2 TAB PO Q4H PRN for Pain Ondansetron Hcl (Zofran), 8 MG PO PRN PRN for Nausea Senna (Senokot), 1 TAB PO BID PRN for PRN Allergies Coded Allergies: Cephalosporins (Verified Allergy, Unknown, UNKNOWN, 11/30/16) Lisinopril (Verified Allergy, Unknown, FACE SWELLING, 11/30/16) Penicillins (Verified Allergy, Unknown, ANAPHYLAXIS, 11/30/16) Oxycodone (Verified Adverse Reaction, Intermediate, N/V, 11/30/16) Statins (Verified Adverse Reaction, Intermediate, PAIN-MUSCLE ACHES, ) Allopurinol (Verified Adverse Reaction, Unknown, gout, 11/30/16) Amlodipine (Verified Adverse Reaction, Unknown, A FIB, LEGS SWELLING, 11/30) Niacin (Verified Adverse Reaction, Unknown, flushing, 11/30/16) Physical Exam Vital Signs Date Time Temp Pulse Resp B/P Pulse Ox O2 Delivery O2 Flow Rate FiO2 12/01/16 01:25 70 19 170/81 97 12/01/16 00:23 62 96 11/30/16 23:57 60 11/30/16 23:53 58 97 11/30/16 23:51 97 Room Air 11/30/16 23:48 175/85 11/30/16 22:20 36.7 95 22 175/87 97 Room Air Physical Exam GENERAL: Patient is in no acute distress. HEENT: No acute trauma, normocephalic atraumatic, mucous membranes moist, no nasal congestion, no scleral icterus. NECK: No stridor, no adenopathy, no meningismus, trachea is midline. LUNGS: Clear to auscultation bilaterally, no wheeze, no rhonchi, breath sounds equal. HEART: 3/6 systolic murmur with a regular rate and rhythm. ABDOMEN: Distension noted. Non-tender. Small reducible umbilical hernia. No peritonitis. EXTREMITIES: Slight left pedal edema. Left knee is mildly erythematous and the surgical incision from recent knee replacement is healing. No cellulitis. NEUROLOGIC: Oriented x 3, no acute motor or sensory deficits, no focal weakness. SKIN: Dark discoloration to skin consistent with iron staining. No rash Medical Decision & Procedures ER Provider Diagnostic Interpretation: Radiology results as stated below per my review and radiologist interpretation: CT ABDOMEN & PELVIS: Ovoid soft tissue mass in the left lower quadrant measuring 8.2x5.3x5.1 cm with scattered calcifications. Correlate with history of malignancy or failed renal transplant. Large ascites. Dense material along the posterior pelvis. No evidence of small bowel obstruction. Left posterolateral hernia containing non-obstructed colon and fluid. Small midline ventral hernia also noted, likely containing non-obstructed small bowel. Moderate amount of stool in the colon. Scattered colonic diverticula. Enlarged retroperitoneal lymph nodes. Subcutaneous stranding/fluid most prominent at the anterior pelvis. Reticulonodular densities most prominent in the right middle lobe. The bilateral kidneys are not visualized. Degenerative changes with scoliosis. Additional incidental findings. Radiologist: Emelyn Nolan M.D. Radiology results as stated below per my interpretation: CHEST X-RAY: Cardiomegaly with some pulmonary venous congestion. No obvious pneumonia. No free air. Laboratory Results 11/30/16 22:40 Red Blood Count 3.41, Mean Corpuscular Volume 98.5, Mean Corpuscular Hemoglobin 31.4, Mean Corpuscular Hemoglobin Concent 31.8, Mean Platelet Volume 8.7, Neutrophils (%) (Auto) 81.3, Lymphocytes (%) (Auto) 8.0, Monocytes (%) (Auto) 6.9, Eosinophils (%) (Auto) 2.8, Basophils (%) (Auto) 0.8, Neutrophils # (Auto) 7.49, Lymphocytes # (Auto) 0.74, Monocytes # (Auto) 0.64, Eosinophils # (Auto) 0.26, Basophils # (Auto) 0.07 11/30/16 22:40 Test 11/30/16 22:40 White Blood Count 9.22 K/uL (4.8-10.8) Red Blood Count 3.41 M/uL (4.2-5.4) Hemoglobin 10.7 g/dL (12.0-16.0) Hematocrit 33.6 % (37-47) Mean Corpuscular Volume 98.5 fL (80-100) Mean Corpuscular Hemoglobin 31.4 pg (25-34) Mean Corpuscular Hemoglobin Concent 31.8 g/dl (32-36) Platelet Count 256 K/uL (130-400) Mean Platelet Volume 8.7 fL (7.4-10.4) Neutrophils (%) (Auto) 81.3 % Lymphocytes (%) (Auto) 8.0 % Monocytes (%) (Auto) 6.9 % Eosinophils (%) (Auto) 2.8 % Basophils (%) (Auto) 0.8 % Neutrophils # (Auto) 7.49 K/uL (1.4-6.5) Lymphocytes # (Auto) 0.74 K/uL (1.2-3.4) Monocytes # (Auto) 0.64 K/uL (0.11-0.59) Eosinophils # (Auto) 0.26 K/uL (0-0.5) Basophils # (Auto) 0.07 K/uL (0-0.2) RDW Standard Deviation 64.4 fL (36.4-46.3) RDW Coefficient of Variation 18.1 % (11.5-14.5) Immature Granulocyte % (Auto) 0.2 % Immature Granulocyte # (Auto) 0.02 K/uL (0.00-0.02) Anion Gap 10.0 mmol/L (3-11) Est Creatinine Clear Calc Drug Dose 7.2 ml/min Estimated GFR () 7.7 Estimated GFR (Non- 6.7 BUN/Creatinine Ratio 5.4 (10-20) Calcium Level 9.3 mg/dl (8.5-10.1) Total Bilirubin 1.2 mg/dl (0.2-1) Aspartate Amino Transf (AST/SGOT) 29 U/L (15-37) Alanine Aminotransferase (ALT/SGPT) 19 U/L (12-78) Alkaline Phosphatase 125 U/L (45-117) Total Protein 7.7 gm/dl (6.4-8.2) Albumin 3.3 gm/dl (3.4-5.0) Globulin 4.4 gm/dl (2.5-4.0) Albumin/Globulin Ratio 0.7 (0.9-2) Lipase 95 U/L (73-393) Laboratory results reviewed by me. Medications Administered Medications (Trade) Dose Ordered Sig/Tien Route Start Time Stop Time Status Last Admin Dose Admin Promethazine HCl/ Sodium Chloride (Phenergan Inj/ Nss 50ml) 50.25 ml @ 204 mls/hr NOW STAT IV 11/30/16 23:16 11/30/16 23:30 DC 11/30/16 23:46 204 MLS/HR Ondansetron HCl (Zofran Inj) 4 mg NOW STAT IV 12/01/16 00:42 12/01/16 00:43 DC 12/01/16 00:47 4 MG Senna/Docusate Sodium (Senokot S Tab) 2 tab NOW ONCE PO 12/01/16 01:15 12/01/16 01:16 DC 12/01/16 01:22 2 TAB ECG Indication: abdominal pain Rate (beats per minute): 63 Rhythm: atrial fibrillation Findings: no acute ischemic change, no ectopy Comparison ECG Date: 12/08/10 Change: no significant change ED Course 2311: The patient was evaluated in room B2. A complete history and physical exam was performed. 2316: Promethazine HCl 6.25mg/ Sodium Chloride 50.25 @ 204mls/hr IV 0042: Zofran Inj 4mg IV 0104: Reevaluated the patient, and she was doing well. Discussed results and discharge instructions: She verbalized understanding and agreement. The patient is ready for discharge. 0115: Senokot S Tab 2 Tab PO Medical Decision The patient is a 65 year old female who presents to the ED with complaints of abdominal pain and constipation. Differential diagnoses considered include bowel obstruction, electrolyte imbalance, dehydration, fluid overload, anemia, constipation. There is no leukocytosis. The patient is anemic but this is consistent with her past history. The number is not critical. Renal panel testing shows a high creatinine consistent with her dialysis need. The potassium is slightly high but acceptable. There are a few minor LFT elevations, no pancreatitis. Chest film shows cardiomegaly and some mild pulmonary vascular congestion, no pneumonia or free air. Abdominal and pelvis CT shows ascites, there is some constipation. Some chronic findings are noted. There was no bowel obstruction. The patient received oral Senokot, IV Zofran and IV Phenergan, she is doing fairly well. She does truly appear to be constipated. This coupled with her ascites is making her nauseated and making her feel bloated. The patient is being discharged to try some Miralax in addition to doubling up on her Senokot. She is going to have dialysis tomorrow. She was encouraged to return to this ER for worsening symptoms. Impression Primary Impression: Constipation Additional Impression: Nausea Scribe Attestation The scribe's documentation has been prepared under my direction and personally reviewed by me in its entirety. I confirm that the note above accurately reflects all work, treatment, procedures, and medical decision making performed by me. Departure Information Dispostion Home / Self-Care Referrals Ruth Tomlinson M.D. (PCP) Forms HOME CARE DOCUMENTATION FORM, IMPORTANT VISIT INFORMATION Patient Instructions My [facility] Additional Instructions increase senokot 2 tab 2x per day miralax 1 heaping capfull in 6 oz of liquid--may need a second dose be sure to have your dialysis tomorrow use your zofran for nausea as directed return for worsening symptoms no bowel obstruction by CT scan Problem Qualifiers
[2016-11-30 23:49] LABS: BASO % 0.8 %; BASO ABS # 0.07 K/uL (0-0.2); COMPLETE YES; EOS % 2.8 %; HEMATOCRIT 33.6 % (37-47); IG% 0.2 %; LYMPH ABS # 0.74 K/uL (1.2-3.4); MEAN CELL VOLUME 98.5 fL (80-100); MEAN CORPUSCULAR HEMOGLOBIN 31.4 pg (25-34); MEAN CORPUSCULAR HGB CONC 31.8 g/dl (32-36); MEAN PLATELET VOLUME 8.7 fL (7.4-10.4); MONO % 6.9 %; NEUT % 81.3 %; PLATELET COUNT 256 K/uL (130-400); RED BLOOD COUNT 3.41 M/uL (4.2-5.4); WHITE BLOOD COUNT 9.22 K/uL (4.8-10.8)
[2016-11-30 23:51] VITALS: O2SAT 97
[2016-12-01 00:36] LABS: ALB/GLOB RATIO 0.7 (0.9-2); BUN/CREATININE RATIO 5.4 (10-20); CALCIUM 9.3 mg/dl (8.5-10.1); POTASSIUM 5.1 mmol/L (3.5-5.1)
[2016-12-01] MEDS ORDERED: ONDANSETRON INJ 2 MG/ML 2 ML VIAL IV STA (00:42)
[2016-12-01] MEDS ORDERED: DOCUSATE SODIUM/SENNA 50/8.6MG TAB PO ONE (01:15)
[2016-12-01 01:25] VITALS: BP 170/81; PULSE 70; O2SAT 97
--- NOTE | 2016-12-01 07:00 | DIAGNOSTIC IMAGING REPORT ---
CHEST ONE VIEW PORTABLE CLINICAL HISTORY: Abdominal pain. COMPARISON STUDY: Chest radiograph December 08, 2010. FINDINGS: A dual lumen right internal jugular catheter is in place. There is no pneumothorax or pleural effusion. There is moderate cardiomegaly. There is pulmonary vascular congestion without overt pulmonary edema. IMPRESSION: Moderate cardiomegaly with pulmonary vascular congestion. Electronically signed by: Jason Funes M.D. 12/01/2016 6:59 AM Dictated Date/Time: 12/01/2016 6:57 AM
--- NOTE | 2016-12-01 07:57 | DIAGNOSTIC IMAGING REPORT ---
ABDOMEN AND PELVIS CT WITHOUT CONTRAST CT DOSE: 501.17 mGy.cm HISTORY: Generalized abdominal pain. TECHNIQUE: Multiaxial CT images of the abdomen and pelvis were performed without contrast. COMPARISON STUDY: None. FINDINGS: Tree-in-bud nodular opacity seen within the anterior segment of the right upper lobe. Levoscoliosis of the lumbar spine. The gallbladder is surgically absent. The heart is mildly enlarged. No hepatic or splenic masses. Pancreas is not well visualized. Moderate to large ascites. Trace dense material within the pelvic cul-de-sac. Left posterior lateral hernia containing a short segment of the splenic flexure of the colon. Suboptimal evaluation for bowel pathology due to the lack of intravenous and oral contrast. However, there is no definite evidence for bowel obstruction. Moderate to large amount of stool seen throughout the colon. Ovoid partially calcified soft tissue mass within the left lower quadrant likely represents a renal transplant. The [place] kidneys are not well visualized. There is 9 mm round hyperdense focus within the midabdomen anterior to the abdominal aorta on image 36. This is nonspecific and could be related to the adjacent duodenum. This appears to be adjacent to but not within the distal common bile duct. Small midline ventral hernia which appears to contain a short segment of small bowel. Colonic diverticulosis. A few mildly enlarged retroperitoneal lymph nodes. Subcutaneous edema within the lower anterior pelvis. IMPRESSION: 1. Suboptimal evaluation due to the lack of intravenous and oral contrast. 2. No definite evidence for bowel obstruction. 3. Moderate to large amount of ascites. 4. Right upper lobe tree-in-bud nodular opacities. This favors an infectious bronchiolitis. 5. Mildly enlarged retroperitoneal lymph nodes. 6. The [place] kidneys are not well visualized. There appears to be a left lower quadrant renal transplant. 7. Left posterior lateral and midline ventral abdominal wall hernias which contain bowel. Electronically signed by: Jose G West M.D. 12/01/2016 7:56 AM Dictated Date/Time: 12/01/2016 7:49 AM
== END 2016-12-01 01:25 | disposition home or self-care (01) ==
LOC: C.EDB 22:18
DX: K59.00 Constipation, unspecified (principal); R11.0 Nausea; I48.91 Unspecified atrial fibrillation; E03.9 Hypothyroidism, unspecified; I12.0 Hypertensive chronic kidney disease with stage 5 chronic kidney disease or end stage renal disease; N18.6 End stage renal disease; N25.81 Secondary hyperparathyroidism of renal origin; K74.60 Unspecified cirrhosis of liver; M19.90 Unspecified osteoarthritis, unspecified site; Z99.2 Dependence on renal dialysis; Z96.651 Presence of right artificial knee joint; Z79.82 Long term (current) use of aspirin; Z79.899 Other long term (current) drug therapy; Z88.0 Allergy status to penicillin; Z88.3 Allergy status to other anti-infective agents; Z88.8 Allergy status to other drugs, medicaments and biological substances; Z83.3 Family history of diabetes mellitus; Z84.1 Family history of disorders of kidney and ureter; Z84.89 Family history of other specified conditions